=== PATIENT | male | born 1935 | race Caucasian/White ===

== ENCOUNTER → 2018-10-17 | Outpatient (CLI) | payer OTHER ==
--- NOTE | 2018-10-17 14:21 | Diagnostic Imaging Report ---
INDICATION: Cough. TECHNIQUE: PA and lateral views of the chest were obtained. COMPARISON: There is no previous study for comparison. FINDINGS: The overall heart size and pulmonary vascularity are within normal limits. There is mild air trapping. There are calcified granulomas in both lungs with pleural thickening along the right lateral chest wall where multiple old fractures are noted. Surgical changes are noted in the mediastinum. IMPRESSION: Probable background COPD without acute abnormality detected. Dictated by: Dictated on workstation # [id number]
== END ==
LOC: RAD FS 13:52
PROVIDERS: ATTEND Nurse Practitioner Family
DX: J44.1 Chronic obstructive pulmonary disease with (acute) exacerbation (principal); Z98.890 Other specified postprocedural states
CPT/HCPCS: 71046

== ENCOUNTER → 2019-06-10 | Outpatient (CLI) | payer MEDICARE, OTHER ==
--- NOTE | 2019-06-10 15:20 | Diagnostic Imaging Report ---
INDICATION: Chronic bilateral foot pain. COMPARISON: None. FINDINGS: Multiple radiographic views of the bilateral feet demonstrate no acute fracture or dislocation. There are no focal osseous lesions. There is no soft tissue swelling. Joint spaces are well maintained. No radiopaque foreign bodies are seen. IMPRESSION: No acute fractures or dislocations of the bilateral feet. Dictated by: Dictated on workstation # [id number]
== END ==
LOC: RAD FS 13:45
PROVIDERS: ATTEND Nurse Practitioner
DX: G89.29 Other chronic pain (principal); M79.671 Pain in right foot; M79.672 Pain in left foot

== ENCOUNTER 2019-09-24 13:24 | Emergency (ER) | payer MEDICARE, OTHER ==
[~2019-09-24] VITALS: Ht 177 cm; Wt 74.9 kg
--- NOTE | 2019-09-24 14:01 | ED General ---
General Chief Complaint: Cough/Cold/Flu Symptoms Stated Complaint: AMS Nursing Triage Note: PT WAS SENT FOR EVUALATION OF SINUS ISSUES AND CHRONIC WORSENING CONFUSION. Nursing Sepsis Screen: No Definite Risk Source of Information: Patient, Family (son) Exam Limitations: No Limitations History of Present Illness Date Seen by Provider: Sep 24, 2019 Time Seen by Provider: 13:45 Initial Comments The patient is an 84-year-old male presents for evaluation of sinus congestion, coughing, and generalized worsening confusion from residential. The patient's son is present and is providing most of the history. The patient's son states the patient is a history of dementia and that his confusion has been worsening over the last several weeks and actually seems a little better today. Apparently a urinalysis was done at the facility which was unremarkable. Upon arrival the patient is answering questions appropriately and appears to be in no distress. He does report some cough and congestion. He denies any pain, fevers or chills, nausea or vomiting, abdominal pain, chest pain or shortness of breath, dizziness, or syncope. He appears to be at baseline mental status per his son. Timing/Duration: 1 Day Severity: Mild Associated Systoms: Cough Allergies and Home Medications Allergies Coded Allergies: No Known Drug Allergies (Unverified , 09/24/19) Patient Home Medication List Home Medication List Reviewed: Yes Review of Systems Review of Systems Constitutional: no symptoms reported EENTM: no symptoms reported Respiratory: cough; No short of breath Cardiovascular: no symptoms reported; No chest pain Gastrointestinal: no symptoms reported Genitourinary: no symptoms reported Musculoskeletal: no symptoms reported Skin: no symptoms reported Psychiatric/Neurological: Other (confusion) Hematologic/Lymphatic: No Symptoms Reported Immunological/Allergic: no symptoms reported All Other Systems Reviewed Negative Unless Noted: Yes Past Onfimmq-Eylddy-Vljfnu Hx Past Med/Social Hx: Reviewed Nursing Past Med/Soc Hx Patient Social History Alcohol Use: Denies Use Recreational Drug Use: No Smoking Status: Never a Smoker 2nd Hand Smoke Exposure: No Recent Foreign Travel: No Contact w/Someone Who Travel: No Recent Infectious Disease Expo: No Recent Hopitalizations: No Physical Abuse: No Sexual Abuse: No Mistreated: No Fear: No Seasonal Allergies Seasonal Allergies: No Past Medical History Surgeries: No Respiratory: Yes COPD Cardiac: Yes Hypertension Neurological: No Genitourinary: No Gastrointestinal: No Endocrine: Yes Hypothyroidsim, Diabetes, Non-Insulin dep HEENT: No Cancer: No Psychosocial: No Integumentary: No Blood Disorders: No Physical Exam Vital Signs Vital Signs - First Documented 09/24/19 13:47 Temp 36.4 Pulse 90 Resp 16 Pulse Ox 97 O2 Delivery Room Air Capillary Refill : Less Than 3 Seconds Height, Weight, BMI Height: '" Weight: lbs. oz. kg; 23.00 BMI Method: General Appearance: No Apparent Distress, WD/WN HEENT: PERRL/EOMI, Normal ENT Inspection, Pharynx Normal Neck: Full Range of Motion, Normal Inspection, Non Tender, Supple Respiratory: Chest Non Tender, Lungs Clear, Normal Breath Sounds, No Accessory Muscle Use, No Respiratory Distress Cardiovascular: Regular Rate, Rhythm, No Edema, No Murmur Gastrointestinal: Normal Bowel Sounds, Non Tender, Soft Extremity: Normal Capillary Refill, Normal Inspection, Non Tender Neurologic/Psychiatric: Alert, Oriented x3, No Motor/Sensory Deficits, Normal Mood/Affect Skin: Normal Color, Warm/Dry Progress/Results/Core Measures Suspected Sepsis Recent Fever Within 48 Hours: No Infection Criteria Present: None New/Unexplained Altered Menta: No Sepsis Screen: No Definite Risk SIRS Temperature: Pulse: 90 Respiratory Rate: 16 Laboratory Tests 09/24/19 14:04: White Blood Count 7.8 Blood Pressure / Mean: Laboratory Tests 09/24/19 14:04: Creatinine 1.49H, Platelet Count 261, Total Bilirubin 0.5 Results/Orders Lab Results Laboratory Tests Test 09/24/19 14:04 Range/Units White Blood Count 7.8 4.3-11.0 10^3/uL Red Blood Count 4.33 L 4.35-5.85 10^6/uL Hemoglobin 13.8 13.3-17.7 G/DL Hematocrit 41 40-54 % Mean Corpuscular Volume 95 80-99 FL Mean Corpuscular Hemoglobin 32 25-34 PG Mean Corpuscular Hemoglobin Concent 33 32-36 G/DL Red Cell Distribution Width 12.2 10.0-14.5 % Platelet Count 261 130-400 10^3/uL Mean Platelet Volume 8.6 7.4-10.4 FL Neutrophils (%) (Auto) 76 H 42-75 % Lymphocytes (%) (Auto) 12 12-44 % Monocytes (%) (Auto) 8 0-12 % Eosinophils (%) (Auto) 3 0-10 % Basophils (%) (Auto) 1 0-10 % Neutrophils # (Auto) 6.0 1.8-7.8 X 10^3 Lymphocytes # (Auto) 1.0 1.0-4.0 X 10^3 Monocytes # (Auto) 0.6 0.0-1.0 X 10^3 Eosinophils # (Auto) 0.2 0.0-0.3 10^3/uL Basophils # (Auto) 0.1 0.0-0.1 10^3/uL Sodium Level 141 135-145 MMOL/L Potassium Level 4.1 3.6-5.0 MMOL/L Chloride Level 101 98-107 MMOL/L Carbon Dioxide Level 26 21-32 MMOL/L Anion Gap 14 5-14 MMOL/L Blood Urea Nitrogen 20 H 7-18 MG/DL Creatinine 1.49 H 0.60-1.30 MG/DL Estimat Glomerular Filtration Rate 45 BUN/Creatinine Ratio 13 Glucose Level 134 H 70-105 MG/DL Calcium Level 9.4 8.5-10.1 MG/DL Corrected Calcium 9.3 8.5-10.1 MG/DL Total Bilirubin 0.5 0.1-1.0 MG/DL Aspartate Amino Transf (AST/SGOT) 25 5-34 U/L Alanine Aminotransferase (ALT/SGPT) 20 0-55 U/L Alkaline Phosphatase 91 40-136 U/L Total Protein 6.9 6.4-8.2 GM/DL Albumin 4.1 3.2-4.5 GM/DL My Orders Orders - RONALD JUAREZ DO Comprehensive Metabolic Panel (09/24/19 13:44) Ua Culture If Indicated (09/24/19 13:44) Ed Iv/Invasive Line Start (09/24/19 13:44) Cbc With Automated Diff (09/24/19 13:44) Chest 1 View Ap/Pa Only (09/24/19 13:44) Fisher Hand Line (09/24/19 13:44) Ct Head Wo (09/24/19 14:35) Ns Iv 1000 Ml (Sodium Chloride 0.9%) (09/24/19 15:15) Vital Signs/I&O 09/24/19 13:47 Temp 36.4 Pulse 90 Resp 16 B/P (MAP) Pulse Ox 97 O2 Delivery Room Air Capillary Refill : Less Than 3 Seconds Progress Note : Progress Note @1544 - patient and son updated on lab and imaging results which are acutely unremarkable. From what the patient's son is telling me is likely the patient's symptoms are coming from primarily dementia but also with an upper respiratory infection. The patient has no complaints and is asking to be discharged home. Workup today fails reveal any emergent pathology. The patient is stable for discharge. Advised the patient and son follow-up with his primary care physician in the next 1-2 days and to return to the emergency Department immediately for new or worsening symptoms. The patient's son expresses verbal understanding and agreement with the plan. Diagnostic Imaging Diagonstic Imaging: Xray, CT Comments [facility] [employer] [place] NAME: APOLLOJESSICA Tate [employer] REC#: [id number] PT STATUS: REG ER : 1935 PHYSICIAN: RONALD JUAREZ DO ADMIT DATE: 09/24/19/ER FS Draft Date of Exam:09/24/19 CHEST 1 VIEW AP/PA ONLY HISTORY: Congestion. TECHNIQUE: Frontal view of the chest. COMPARISON: 10/17/2018 FINDINGS: Lung volumes are large. No focal consolidation is seen. There is no pleural effusion or pneumothorax. The cardiac silhouette is normal in size and contour. Sternotomy wires and post-CABG changes are seen. There are old right-sided rib fractures. IMPRESSION: 1. Large lung volumes with no acute pulmonary abnormality seen. Dictated on workstation # [id number] Dict: 09/24/19 1359 Trans: 09/24/19 1401 [facility] [id number] Interpreted by: ROSITA WILCOX MD Electronically signed by: [facility] [place] NAME: APOLLOJESSICA L [employer] REC#: [id number] PT STATUS: REG ER : 1935 PHYSICIAN: RONALD JUAREZ DO ADMIT DATE: 09/24/19/ER FS Draft Date of Exam:09/24/19 CT HEAD WO PROCEDURE: CT head without contrast. TECHNIQUE: Multiple contiguous axial images were obtained through the brain without the use of intravenous contrast. Auto Exposure Controls were utilized during the CT exam to meet ALARA standards for radiation dose reduction. All CT scans use one or more of the following dose optimizing techniques: automated exposure control, MA and/or KvP adjustment based on patient size and exam type or iterative reconstruction. INDICATION: Altered mental status. COMPARISON: No prior studies are available for comparison. FINDINGS: Ventricles and sulci are prominent consistent with cerebral atrophy. No sulcal effacement or midline shift is identified. No acute intra-axial or extra-axial hemorrhage is seen. Cisterns are patent. Visualized paranasal sinuses are clear. IMPRESSION: Cerebral atrophy and senescent changes. No acute intracranial process is detected. Dictated on workstation # [id number] Dict: 09/24/19 1501 Trans: 09/24/19 1504 [facility] [id number] Interpreted by: TWAN MURCIA MD Electronically signed by: Departure Impression Primary Impression: Upper respiratory infection Additional Impression: Dementia Disposition: 01 HOME, SELF-CARE Condition: Stable Departure-Patient Inst. Decision time for Depature: 15:45 Referrals: CHANDA CANO MD (PCP/Family) Primary Care Physician Patient Instructions: Cough, Adult (DC), Dementia (Including Alzheimer Disease) Add. Discharge Instructions: Follow-up with your primary care doctor in the next 1-2 days. Return to the emergency Department immediately for new or worsening symptoms. RONALD JUAREZ DO Sep 24, 2019 14:01
[2019-09-24 14:46] LABS: POTASSIUM 4.1 MMOL/L (3.6-5.0)
[2019-09-24 14:47] LABS: ALBUMIN 4.1 GM/DL (3.2-4.5); BILIRUBIN,TOTAL 0.5 MG/DL (0.1-1.0); CALCIUM 9.4 MG/DL (8.5-10.1); CREATININE SERUM 1.49 MG/DL (0.60-1.30); TOTAL PROTEIN 6.9 GM/DL (6.4-8.2)
[2019-09-24 14:48] LABS: BASOPHILS % (AUTO) 1 % (0-10); EOSINOPHILS % (AUTO) 3 % (0-10); HEMATOCRIT 41 % (40-54); HEMOGLOBIN 13.8 G/DL (13.3-17.7); LYMPHOCYTES % (AUTO) 12 % (12-44); MEAN CORPUSCULAR HEMOGLOBIN 32 PG (25-34); MEAN CORPUSCULAR HGB CONC 33 G/DL (32-36); MEAN CORPUSCULAR VOLUME 95 FL (80-99); MEAN PLATELET VOLUME 8.6 FL (7.4-10.4); MONOCYTES % (AUTO) 8 % (0-12); PLATELET COUNT 261 10^3/uL (130-400); RED CELL DISTRIBUTION WIDTH 12.2 % (10.0-14.5); WHITE BLOOD COUNT 7.8 10^3/uL (4.3-11.0)
[2019-09-24 14:49] LABS: BASOPHILS # (AUTO) 0.1 10^3/uL (0.0-0.1); EOSINOPHILS # (AUTO) 0.2 10^3/uL (0.0-0.3); MONOCYTES # (AUTO) 0.6 X 10^3 (0.0-1.0); NEUTROPHILS % (AUTO) 76 % (42-75)
--- NOTE | 2019-09-24 15:04 | Diagnostic Imaging Report ---
PROCEDURE: CT head without contrast. TECHNIQUE: Multiple contiguous axial images were obtained through the brain without the use of intravenous contrast. Auto Exposure Controls were utilized during the CT exam to meet ALARA standards for radiation dose reduction. All CT scans use one or more of the following dose optimizing techniques: automated exposure control, MA and/or KvP adjustment based on patient size and exam type or iterative reconstruction. INDICATION: Altered mental status. COMPARISON: No prior studies are available for comparison. FINDINGS: Ventricles and sulci are prominent consistent with cerebral atrophy. No sulcal effacement or midline shift is identified. No acute intra-axial or extra-axial hemorrhage is seen. Cisterns are patent. Visualized paranasal sinuses are clear. IMPRESSION: Cerebral atrophy and senescent changes. No acute intracranial process is detected. Dictated by: Dictated on workstation # [id number]
[2019-09-24] MEDS ORDERED: NS IV 1000 ML 500 ML IV SCH (15:15)
[2019-09-24 15:59] VITALS: BP 118/72
== END 2019-09-24 16:11 | disposition home or self-care (01) ==
LOC: EDUNIT# 13:24 → ER FS 13:26
DX: J06.9 Acute upper respiratory infection, unspecified (principal); F03.90 Unspecified dementia, unspecified severity, without behavioral disturbance, psychotic disturbance, mood disturbance, and anxiety; Z87.09 Personal history of other diseases of the respiratory system
CPT/HCPCS: 36415; 70450; 71045; 80053; 85025

== ENCOUNTER 2019-11-22 01:58 | Emergency (ER) | payer OTHER ==
[~2019-11-22] VITALS: Ht 177.8 cm; Wt 81.8 kg
--- NOTE | 2019-11-22 02:04 | ED Integumentary General ---
General Chief Complaint: Laceration Stated Complaint: FALL,LAC TO RIGHT EYEBROW, TOP OF HEAD BUMP Source: patient History of Present Illness Date Seen by Provider: Nov 22, 2019 Time Seen by Provider: 02:03 Initial Comments 84-year-old male brought in following a fall. Patient reports that he fell on a slick spot on the floor. Patient hit the floor with his head. He has an approximate 3 cm laceration to the right eyebrow and an abrasion on the top of his head with a mild hematoma. Patient denies any loss of consciousness. Patient denies any other injury. Allergies and Home Medications Allergies Coded Allergies: No Known Drug Allergies (Unverified , 09/24/19) Patient Home Medication List Home Medication List Reviewed: Yes Review of Systems Review of Systems Constitutional: No chills, No fever EENTM: see HPI Respiratory: no symptoms reported Cardiovascular: no symptoms reported Gastrointestinal: no symptoms reported Musculoskeletal: no symptoms reported Skin: see HPI Past Xncaskf-Vqcunj-Mbihxk Hx Past Med/Social Hx: Reviewed Nursing Past Med/Soc Hx Patient Social History Type Used: Cigarettes Former Smoker, Quit: Aug 21, 1979 2nd Hand Smoke Exposure: No Recent Foreign Travel: No Contact w/Someone Who Travel: No Recent Hopitalizations: No Immunizations Up To Date Date of Pneumonia Vaccine: Jun 01, 2015 Date of Influenza Vaccine: Mar 21, 2019 Seasonal Allergies Seasonal Allergies: No Past Medical History Surgeries: Yes (ROTATOR CUFF REPAIR) CABG, Orthopedic Respiratory: Yes COPD Cardiac: Yes Coronary Artery Disease, Heart Attack, High Cholesterol, Hypertension Neurological: Yes Dementia Genitourinary: Yes Prostate Problems, Renal Failure Gastrointestinal: Yes Gastroesophageal Reflux, Chronic Constipation Arthritis, Chronic Back Pain Endocrine: Yes Hypothyroidsim, Diabetes, Non-Insulin dep HEENT: No Cancer: No Psychosocial: Yes Sleep Difficulties, Anxiety, Depression Integumentary: No Blood Disorders: No Physical Exam Vital Signs Vital Signs - First Documented 11/22/19 02:11 Temp 36.5 Pulse 88 Resp 16 B/P (MAP) 157/69 (98) O2 Delivery Room Air Capillary Refill : General Appearance: WD/WN HEENT: other (abrasion scalp) Neck: non-tender, full range of motion Cardiovascular: regular rate, rhythm Respiratory: no respiratory distress, no accessory muscle use Gastrointestinal: non tender, soft Back: normal inspection Neurologic/Psychiatric: alert, normal mood/affect Skin Problem Location: scalp Skin Problem Character: other (3 cm laceration right eyebrow) Procedures/Interventions Wound Location: Face Wound's Depth, Shape: superficial, irregular Wound Explored: clean Anesthesia: 1% Lidocaine Volume Anesthetic (ccs): 5 Wound Debrided: minimal Suture: Plain Suture Size: 4-0 Number of Sutures: 6 Sterile Dressing Applied?: Yes Progress Laceration was irregular and over a hematoma. However there was good approximation. Patient tolerated well with no immediate complications Progress/Results/Core Measures Results/Orders Lab Results Laboratory Tests Test 11/22/19 02:50 Range/Units Urine Color YELLOW Urine Clarity CLEAR Urine pH 5.5 5-9 Urine Specific [place] 1.025 H 1.016-1.022 Urine Protein NEGATIVE NEGATIVE Urine Glucose (UA) NEGATIVE NEGATIVE Urine Ketones NEGATIVE NEGATIVE Urine Nitrite NEGATIVE NEGATIVE Urine Bilirubin NEGATIVE NEGATIVE Urine Urobilinogen 0.2 < = 1.0 MG/DL Urine Leukocyte Esterase NEGATIVE NEGATIVE Urine RBC (Auto) NEGATIVE NEGATIVE Urine RBC NONE /HPF Urine WBC 10-25 H /HPF Urine Squamous Epithelial Cells NONE /HPF Urine Crystals NONE /LPF Urine Bacteria FEW H /HPF Urine Casts PRESENT /LPF Urine Mucus MODERATE H /LPF Urine Other /HPF Urine Culture Indicated YES My Orders Orders - YOVANY CROWER L DO Ct Head Wo (11/22/19 02:06) Tetanus/Diphtheria Inj (Adult) (Tenivac (11/22/19 02:15) Lidocaine 1% Inj 20 Ml (Xylocaine 1% Inj (11/22/19 02:15) Ua Culture If Indicated (11/22/19 02:47) Urine Culture (11/22/19 02:50) Medications Given in ED Current Medications Medications Dose Ordered Sig/[place] Route Start Time Stop Time Status Last Admin Dose Admin Lidocaine HCl 20 ml ONCE ONCE INJ 11/22/19 02:15 11/22/19 02:16 DC 11/22/19 02:27 20 ML Tetanus/ Diphtheria Toxoids 0.5 ml ONCE ONCE IM 11/22/19 02:15 11/22/19 02:16 DC 11/22/19 02:32 0.5 ML Vital Signs/I&O 11/22/19 02:11 Temp 36.5 Pulse 88 Resp 16 B/P (MAP) 157/69 (98) O2 Delivery Room Air Progress Progress Note : Time: 02:48 Progress Note As I was suturing patient. He complained of left groin pain that radiates into his left testicle. He reports that this is been going on and off for at least a couple months. I discussed with him that we would check a urine and treat if there is a urinary tract infection. Otherwise he would need to follow-up with his primary care provider for an outpatient ultrasound that is not available in this ER at night. And is not emergent since then been going on and off for months. Diagnostic Imaging Diagonstic Imaging: CT Plain Films/CT/US/NM/MRI: head Comments No acute intracranial hemorrhage or injury. Reviewed: [facility] Imp[facility] Primary Impression: Fall from other slipping, tripping, or stumbling Additional Impressions: Laceration of forehead Qualified Codes: S01.81XA - Laceration without foreign body of other part of head, initial encounter Traumatic hematoma of forehead Qualified Codes: S00.83XA - Contusion of other part of head, initial encounter Scalp abrasion Qualified Codes: S00.01XA - Abrasion of scalp, initial encounter Urinary tract infection Qualified Codes: N39.0 - Urinary tract infection, site not specified Disposition: 01 HOME, SELF-CARE Condition: Stable Departure-Patient Inst. Referrals: SELF,CHANDA REYES (PCP/Family) Primary Care Physician Patient Instructions: Wound Care (DC), Preventing Falls in the Older Adult, Minor Head Injury (DC), Skin Abrasions, Laceration Repair With Stitches (DC), Urinary Tract Infection, Adult (DC) Add. Discharge Instructions: Follow-up and either the ER or with her primary care provider in 10 days for suture removal Follow-up with your primary care provider for further evaluation severe chronic right groin pain with possible outpatient ultrasound Emergency department focuses on treating and ruling out life-threatening diseases. Whenever possible, a diagnosis is given. However, most patients are given an impression based on their history, physical exam, and workup during your brief time in the ER. Information about probable diagnosis and other educational material has been provided. Please take the time to read and understand this information. It is very important that you follow up with a physician as discussed during the visit today. Failure to adhere to your follow-up instructions may lead to severe disability, injury, or so please make sure to keep your appointments or obtain one as requested. Please keep in mind the emergency department is not designed to your primary care or "family doctor" and nonurgent issues are best e valuated by an outpatient physician All discharge instructions reviewed with patient and/or family. Voiced understanding. Scripts Sulfamethoxazole/Trimethoprim (Bactrim Ds Tablet) 1 Each Tablet 1 EACH PO BID for 5 Days, #10 TAB Prov: SUBHA CROWE DO 11/22/19 SUBHA CROWE DO Nov 22, 2019 02:04
--- OUTSIDE RECORDS SUMMARY | 2019-11-22 02:06 | XMS REPORT | Continuity of Care Document ---
Author Organization Unknown Address Unknown Phone Unavailable Allergies Active Description Code Type Severity Reaction Onset Reported/Identified Relationship to Patient Clinical Status Yes NO KNOWN DRUG ALLERGIES UNKNOWN UNKNOWN Medications Medication Packaging Start Date St op Date Route Dosage Sig TIZANIDINE TAB 4 MG (ZANAFLEX) MG 05/30/2019 06/29/2019 PRN TID LOPERAMIDE CAP 2 MG (IMMODIUM) MG 05/30/2019 06/06/2019 PRN QID GUAIFENESIN TAB 600 MG (MUCINEX) MG 05/30/2019 06/29/2019 PRN Q12H TAMSULOSIN CAP 0.4 MG (FLOMAX) MG 05/30/2019 06/28/2019 QPM&1800 DICLOFENAC GEL GEL 1 % (VOLTAREN GEL) APPLICATION 05/30/2019 06/29/2019 BID&0800,2000 QUETIAPINE TAB 25 MG (SEROQUEL) MG 05/30/2019 06/29/2019 BID&0800,2000 TRAMADOL TAB 50 MG (ULTRAM) MG 05/30/2019 06/29/2019 TID&0800,1400,2000 CARVEDILOL TAB 3.125 MG (COREG) MG 05/30/2019 06/29/2019 BID&0800,2000 SIMVASTATIN TAB 40 MG (ZOCOR) MG 05/30/2019 06/28/2019 QPM&2000 FISH OIL CAP CAP 1000 MG (OMEGA 3) MG 05/30/2019 06/29/2019 BID&0800,2000 LACTULOSE SYRUP LIQ 20 GM/30 CC (CHRONULAC SYRUP) GM 05/30/2019 06/29/2019 BID&0800,2000 TRAMADOL TAB 50 MG (ULTRAM) MG 05/30/2019 06/09/2019 PRN BID ZOLPIDEM TAB 5 MG (AMBIEN) M G 05/30/2019 05/30/2019 PRN ONCE QUETIAPINE TAB 25 MG (SEROQUEL) MG 05/30/2019 06/01/2019 QHS&2100 TRAZODONE TAB 50 MG (DESYREL) MG 05/30/2019 06/28/2019 QHS&2100 MIRTAZAPINE TAB 15 MG (REMERON) MG 05/30/2019 06/05/2019 QHS&2100 LEVOTHYROXINE TAB 100 MCG (SYNTHROID) MCG 05/31/2019 06/29/2019 QAM&0800 LISINOPRIL TAB 10 MG (ZESTRIL) MG 05/31/2019 06/29/2019 QAM&0800 SERTRALINE TAB 50 MG (ZOLOFT) MG 05/31/2019 06/29/2019 QAM&0800 FLUTICASONE NASAL INHALER MD [place] 50 MCG (FLONASE NOSE SPRAY) PUFF(S) 05/31/2019 06/29/2019 QAM&0800 PANTOPRAZOLE TAB 40 MG (PROTONIX) MG 05/31/2019 06/29/2019 QAM&0800 CETIRIZINE TAB 10 MG (ZYRTEC) MG 05/31/2019 06/29/2019 QAM&0800 FERROUS SULFATE TAB 325 MG (FEOSOL) MG 05/31/2019 06/29/2019 QAM&0800 Aspirin ENTERIC COATED TAB 325 MG (ECOTRIN ) MG 05/31/2019 06/29/2019 QAM&0800 MultiVits (Thera M Plus) (mu aamkyl-ebtm-hlupndl) oral tablet TAB 05/31/2019 06/29/2019 QAM&0800 CYANOCOBALAMIN TAB 1000 MCG (VIT B 12) MCG 05/31/2019 06/29/2019 QAM&0800 VENLAFAXINE XR CAP 75 MG (EFFEXOR XR) MG 05/31/2019 06/29/2019 Daily&0900 RANITIDINE TAB 150 MG (ZANTAC) MG 05/31/2019 06/07/2019 PRN Daily Docusate sodium 100mg oral capsule (COLACE ) MG 05/31/2019 06/30/2019 PRN Daily BISACODYL TAB 5 MG (DULCOLAX) MG 05/31/2019 06/30/2019 PRN Daily DONEPEZIL TAB 10 MG (ARICEPT) MG 05/31/2019 06/29/2019 Daily&0900 DIPHENHYDRAMINE CAP 25 MG (BENADRYL) MG 05/31/2019 06/30/2019 PRN Daily Flu vacc [id number] 6mos up(P F)) IM syringe QUAD (Fluarix) ML 05/31/2019 05/31/2019 ONCE&1154 ALUM/MAG/SIMETH 30CC LIQ (MYLANTA PLUS) cc 05/31/2019 06/10/2019 PRN Q4H AMITRIPTYLINE TAB 25 MG (ELAVIL) MG 06/01/2019 06/30/2019 BID&0800,2000 VENLAFAXINE XR CAP 75 MG (EFFEXOR XR) MG 06/01/2019 06/30/2019 Daily&0900 TAMSULOSIN CAP 0.4 MG (FLOMAX) MG 10/15/2019 11/13/2019 QPM&1800 DICLOFENAC GEL GEL 1 % (VOLTAREN GEL) APPLICATION 10/15/2019 11/14/2019 BID&0800,2000 FAMOTIDINE TAB 20 MG (PEPCID) MG 10/15/2019 11/13/2019 BID&0800,2000 CARVEDILOL TAB 3.125 MG (COREG) MG 10/15/2019 11/14/2019 BID&0800,2000 SIMVASTATIN TAB 40 MG (ZOCOR) MG 10/15/2019 11/13/2019 QPM&2000 FISH OIL CAP CAP 1000 MG (OMEGA 3) MG 10/15/2019 11/14/2019 BID&0800,2000 FLUTICASONE/SALMETEROL MDI 2 50 /50MCG (ADVAIR DISKUS) PUFF 10/15/2019 11/13/2019 BID&0800,2000 HALOPERIDOL VIAL INJ 5 MG/CC (HALDOL 1CC V IAL) MG 10/15/2019 10/17/2019 PRN Q6H OLANZAPINE TAB 10 MG (ZYPREXA) MG 10/15/2019 11/13/2019 QHS&2100 Clonazepam Oral Dissolve Tab 0.25mg (Klono pin) MG 10/15/2019 10/15/2019 ONCE&2100 MIRTAZAPINE TAB 15 MG (REMERON) MG 10/15/2019 11/13/2019 QHS&2100 IBUPROFEN TAB 400 MG (MOTRIN) MG 10/15/2019 11/14/2019 QID&0800,1200,1700,2200 Ziprasidone IM recon soln 20mg/mL vial (Ge odon) MG 10/15/2019 10/15/2019 ONCE&2314 ACETAMINOPHEN ORAL TABLET 325mg(Tylenol) MG 10/16/2019 11/15/2019 PRN EVERY 6 Hour ALUM/MAG/SIMETH 30CC LIQ (MYLANTA PLUS) cc 10/16/2019 10/25/2019 PRN Q4H POLYETHYLENE GLYCOL POWDER U D PWD (MIRALAX 17GM UNIT DOSE PAKS) gm 10/16/2019 11/15/2019 PRN Q3H GUAIFENESIN TAB 600 MG (MUCINEX) MG 10/16/2019 11/15/2019 PRN Q12H LEVOTHYROXINE TAB 100 MCG (SYNTHROID) MCG 10/16/2019 11/14/2019 Daily&0700 ALPRAZOLAM TAB 0.5 MG (XANAX) MG 10/16/2019 11/14/2019 BID&0800,1999 CALMOSEPTINE OINT TUBE (RISAMINE OINT) [place] 10/16/2019 11/15/2019 PRN QID AMITRIPTYLINE TAB 25 MG (ELAVIL) MG 10/16/2019 11/14/2019 BID&0800,1999 LOPERAMIDE CAP 2 MG (IMMODIUM) MG 10/16/2019 11/15/2019 PRN QID Memantine oral tablet 10mg (NAMENDA) MG 10/16/2019 11/14/2019 BID&0800,1999 ALPRAZOLAM TAB 0.25 MG (XANAX) MG 10/16/2019 11/15/2019 PRN BID LACTULOSE SYRUP LIQ 20 GM/30 CC (CHRONULAC SYRUP) GM 10/16/2019 11/15/2019 PRN BID VENLAFAXINE XR CAP 75 MG (EFFEXOR XR) MG 10/16/2019 11/14/2019 Daily&0900 BISACODYL TAB 5 MG (DULCOLAX) MG 10/16/2019 11/15/2019 PRN Daily OLANZAPINE TAB 5 MG (ZYPREXA) MG 10/16/2019 11/14/2019 Daily&0900 CETIRIZINE TAB 10 MG (ZYRTEC) MG 10/16/2019 11/15/2019 PRN Daily Aspirin ENTERIC COATED TAB 325 MG (ECOTRIN ) MG 10/16/2019 11/14/2019 Daily&0900 SENNA CONC/DOCUSATE TAB (SENOKOT S) TAB 10/16/2019 11/15/2019 PRN Daily MultiVits (Thera M Plus) (mu psvvxk-rhrt-qqwkfpl) oral tablet TAB 10/16/2019 11/14/2019 Daily&0900 BISACODYL SUPPOS 10 MG (DULCOLAX SUPPOS) MG 10/16/2019 11/15/2019 PRN Daily CYANOCOBALAMIN TAB 1000 MCG (VIT B 12) MCG 10/16/2019 11/14/2019 Daily&0900 ALBUTEROL INHALER MDI 8 GM (VENTOLIN HFA) PUFF(S) 10/16/2019 11/15/2019 PRN Daily MILK OF MAGNESIA LIQ ml 10/16/2019 11/15/2019 PRN Daily HYDROXYZINE TAB 10 MG (ATARAX) MG 10/16/2019 11/14/2019 Daily&0900 ZIPRASIDONE CAP 40 MG (GEODON) MG 10/17/2019 10/17/2019 ONCE&0838 ZIPRASIDONE CAP 40 MG (GEODON) MG 10/17/2019 11/16/2019 BID&0700,1730 Ziprasidone IM recon soln 20mg/mL vial (Ge odon) MG 10/17/2019 11/16/2019 PRN BID MUPIROCIN OINT 2 % (BACTROBAN) [place] 10/19/2019 10/29/2019 BID&0800,2000 Mirtazapine oral tablet 7.5mg (Remeron) MG 10/19/2019 11/17/2019 QHS&2100 HALOPERIDOL VIAL INJ 5 MG/CC (HALDOL 1CC V IAL) MG 10/19/2019 10/19/2019 PRN ONCE HALOPERIDOL VIAL INJ 5 MG/CC (HALDOL 1CC V IAL) MG 10/20/2019 10/27/2019 PRN Q8H CLONAZEPAM TAB 0.5 MG (KLONOPIN) MG 10/20/2019 11/18/2019 Daily&1700 MIRTAZAPINE TAB 15 MG (REMERON) MG 10/21/2019 11/19/2019 QHS&2100 MELATONIN TAB 3 MG (MELATONIN) MG 10/21/2019 11/19/2019 QHS&2100 Clonazepam Oral Dissolve Tab 0.25mg (Klono pin) MG 10/22/2019 10/22/2019 ONCE&1620 VENLAFAXINE XR CAP 37.5 MG (EFFEXOR XR) MG 10/23/2019 10/23/2019 ONCE&1153 Clonazepam Oral Dissolve Tab 0.25mg (Klono pin) MG 10/23/2019 11/21/2019 Daily&1300 HALOPERIDOL TAB 5 MG (HALDOL) MG 10/23/2019 10/23/2019 ONCE&1922 VENLAFAXINE XR CAP 37.5 MG (EFFEXOR XR) MG 10/24/2019 11/22/2019 QAM&0800 CLONAZEPAM TAB 1 MG (KLONOPIN) MG 10/24/2019 10/24/2019 ONCE&1200 CLONAZEPAM TAB 0.5 MG (KLONOPIN) MG 10/24/2019 10/24/2019 ONCE&1200 CLONAZEPAM TAB 0.5 MG (KLONOPIN) MG 10/25/2019 10/25/2019 ONCE&1032 HALOPERIDOL TAB 5 MG (HALDOL) MG 10/25/2019 11/24/2019 PRN Q8H LORAZEPAM TAB 2 MG (ATIVAN) MG 10/25/2019 10/25/2019 PRN ONCE LORAZEPAM 1CC VIAL INJ 2 MG/CC (ATIVAN VIA L) MG 10/25/2019 10/25/2019 PRN ONCE DIPHENHYDRAMINE VIAL INJ 50 MG/CC (BENADRYL VIAL) MG 10/25/2019 10/30/2019 PRN Q4H Ziprasidone IM recon soln 20mg/mL vial (Ge odon) MG 10/25/2019 10/25/2019 ONCE&1824 CLONAZEPAM TAB 0.5 MG (KLONOPIN) MG 10/25/2019 11/24/2019 BID&0800,2000 Lidocaine adhesive patch 5% (Lidoderm) 10/26/2019 10/26/2019 ONCE&0908 HALOPERIDOL VIAL INJ 5 MG/CC (HALDOL 1CC V IAL) MG 10/26/2019 11/02/2019 PRN Q6H ZIPRASIDONE CAP 40 MG (GEODON) MG 10/26/2019 11/24/2019 Daily&1200 ZIPRASIDONE CAP 20 MG (GEODON) MG 10/26/2019 11/24/2019 Daily&1200 ZIPRASIDONE CAP 40 MG (GEODON) MG 10/26/2019 11/24/2019 Daily&1700 ZIPRASIDONE CAP 20 MG (GEODON) MG 10/26/2019 11/24/2019 Daily&1700 Lidocaine adhesive patch 5% (Lidoderm) 10/27/2019 11/05/2019 Daily&0900 Problems Date Dx Coded Attending Type Code Diagnosis Diagnosed By 05/30/2019 MIGNON LEVIN 296 .20 MAJOR DEPRESSIVE DISORDER, SINGLE EPISODE, UNSPECIFIED DEGREE 05/30/2019 MIGNON LEVIN F32 .9 MAJOR DEPRESSIVE DISORDER, SINGLE EPISODE, UNSPECIFIED 05/30/2019 MIGNON LEVIN 296 .20 MAJOR DEPRESSIVE DISORDER, SINGLE EPISODE, UNSPECIFIED DEGREE 05/30/2019 MIGNON LEVIN F32 .9 MAJOR DEPRESSIVE DISORDER, SINGLE EPISODE, UNSPECIFIED 05/30/2019 MIGNON LEVIN 296 .20 MAJOR DEPRESSIVE DISORDER, SINGLE EPISODE, UNSPECIFIED DEGREE 05/30/2019 MIGNON LEVIN F32 .9 MAJOR DEPRESSIVE DISORDER, SINGLE EPISODE, UNSPECIFIED 05/30/2019 MIGNON LEVIN 296 .20 MAJOR DEPRESSIVE DISORDER, SINGLE EPISODE, UNSPECIFIED DEGREE 05/30/2019 MIGNON LEVIN F32 .9 MAJOR DEPRESSIVE DISORDER, SINGLE EPISODE, UNSPECIFIED 06/01/2019 MIGNON LEVIN 296 .20 MAJOR DEPRESSIVE DISORDER, SINGLE EPISODE, UNSPECIFIED DEGREE 06/01/2019 MIGNON LEVIN F32 .9 MAJOR DEPRESSIVE DISORDER, SINGLE EPISODE, UNSPECIFIED Procedures There is no data. Results Test Result Range Thyroid Stimulating Hormone - 05/30/19 1 3:32 TSH 1.28 mIU/mL 0.32-5.00 Urinalysis - 05/30/19 13:32 Icotest N/A Negative Urine Volume Urine Volume Sufficient (10mL) Urine-Appearance Clear Clear Urine-Bacteria Negative Urine-Bilirubin Negative Negative Urine-Blood Negative Negative Urine-Color Yellow Colorless-[place] ow Urine-Epithelial Cells 0-5/HPF Urine-Glucose Negative Negative Urine-Ketones Negative Negative Urine-Leukocytes Negative Negative Urine-Nitrite Negative Negative Urine-Other Moderate numbers of sperm se en. Urine Saved if Culture Needed (48hrs from time of collection) Urine-pH 5.5 5-8.5 Urine-Protein Negative Negative Urine-RBC Negative Urine-Specific [place] 1.025 1.000-1 .030 Urine-WBC Negative Urobilinogen 0.2 E.U./dL 0.2-1.0 Rapid Drug Screen + ETOH,Medical - 05/30 13:32 Amphetamine NEGATIVE NEGATIVE Barbiturates NEGATIVE NEGATIVE Benzodiazepines NEGATIVE NEGATIVE Cocaine NEGATIVE NEGATIVE Ethanol, Urine <10.00 mg/dL 20.00-80.00 Marijuana NEGATIVE NEGATIVE Methylenedioxymethamphetamine NEGATIVE NEGATIVE Opiates NEGATIVE NEGATIVE Oxycodone NEGATIVE NEGATIVE Phencyclidine NEGATIVE NEGATIVE Propoxyphene NEGATIVE NEGATIVE Tricyclic Antidepressant NEGATIVE NEGAT LEO MRSA Screen - 05/30/19 14:00 FINAL CULTURE RESULTS MRSA Negative Nasal Culture MEDIA PLATED Setup at 14:15 on 05/30/2019 Lipid Panel - 05/31/19 05:19 C/HDL 4.7 3.7-6.7 Cholesterol 156 mg/dL 100-240 HDL 33 mg/dL 30-85 LDL-Calculated 96 mg/dL 0-100 Trig 133 mg/dL 35-160 VLDL 27 mg/dL 0-42 EKG - 10/15/19 19:15 EKG Complete Thyroid Stimulating Hormone - 10/15/19 1 9:15 TSH 1.14 mIU/mL 0.32-5.00 MRSA Screen - 10/15/19 19:20 FINAL CULTURE RESULTS MRSA POSITIVE Nasal Culture MEDIA PLATED Setup at 19:46 on 10/15/2019 Lipid Panel - 10/16/19 05:20 C/HDL 3.4 3.7-6.7 Cholesterol 149 mg/dL 100-240 HDL 44 mg/dL 30-85 LDL-Calculated 75 mg/dL 0-100 Trig 151 mg/dL 35-160 VLDL 30 mg/dL 0-42 Rapid Drug Screen + ETOH,Medical - 10/16 11:55 Amphetamine NEGATIVE NEGATIVE Barbiturates NEGATIVE NEGATIVE Benzodiazepines POSITIVE NEGATIVE Cocaine NEGATIVE NEGATIVE Ethanol, Urine <10.00 mg/dL 20.00-80.00 Marijuana NEGATIVE NEGATIVE Methylenedioxymethamphetamine NEGATIVE NEGATIVE Opiates NEGATIVE NEGATIVE Oxycodone NEGATIVE NEGATIVE Phencyclidine POSITIVE NEGATIVE Propoxyphene NEGATIVE NEGATIVE Tricyclic Antidepressant POSITIVE NEGAT LEO EKG - 10/20/19 06:05 EKG Complete Comprehensive Metabolic Panel - 10/22/19 05:52 Albumin 3.7 g/dL 3.6-5.1 ALP 85 U/L 35-130 ALT 22 U/L 6-45 Anion Gap 13 6-14 AST 24 U/L 2-40 BUN 15 mg/dL 5-25 Calcium 8.9 mg/dL 8.3-10.4 Chloride 107 mmol/L 95-114 CO2 27 mEq/L 22-33 Creat 1.14 mg/dL 0.50-1.50 eGFR 61 mL/min/1.73m2 >59 Globulin 2.1 g/dL 2.3-3.5 Glucose 104 mg/dL 70-110 Osmo 296 280-295 Potassium 4.3 mmol/L 3.5-5.3 Sodium 143 mmol/L 134-148 TBil 0.8 mg/dL 0.2-1.2 TP 5.8 g/dL 6.0-8.3 EKG - 10/25/19 04:21 EKG Complete Comprehensive Metabolic Panel - 10/28/19 05:55 Albumin 3.4 g/dL 3.6-5.1 ALP 70 U/L 35-130 ALT 18 U/L 6-45 Anion Gap 13 6-14 AST 22 U/L 2-40 BUN 17 mg/dL 5-25 Calcium 8.4 mg/dL 8.3-10.4 Chloride 110 mmol/L 95-114 CO2 24 mEq/L 22-33 Creat 1.31 mg/dL 0.50-1.50 eGFR 52 mL/min/1.73m2 >59 Globulin 1.8 g/dL 2.3-3.5 Glucose 103 mg/dL 70-110 Osmo 297 280-295 Potassium 4.1 mmol/L 3.5-5.3 Sodium 143 mmol/L 134-148 TBil 0.4 mg/dL 0.2-1.2 TP 5.2 g/dL 6.0-8.3 Encounters ACCT No. Visit Date/Time Discharge Status Pt. Type Provider Facility Loc./Unit Complaint [id number] 10/15/2019 18:41:00 10/30/2019 10:10 :00 DIS Inpatient MIGNON LEVIN [facility] [id number] 05/30/2019 13:29:00 06/01/2019 13:48: 00 DIS Inpatient MIGNON LEVIN [facility] [id number] 05/30/2019 15:00:00 05/30/2019 15:00: 00 CAN Inpatient MIGNON LEVIN [id number] 05/30/2019 13:50:24 Document Registration [id number] 05/30/2019 14:57:00 Document Registration
[2019-11-22] MEDS ORDERED: LIDOCAINE 1% INJ 20 ML 20 ML VIAL INJ ONE (02:15)
[2019-11-22] MEDS ORDERED: TETANUS & DIPHTHERIA TOX,ADULT 0.5 ML (TENIVAC) IM ONE (02:15)
[2019-11-22 03:05] LABS: BACTERIA,URINE FEW /HPF; BILIRUBIN,URINE NEGATIVE (NEGATIVE); CLARITY,URINE CLEAR; COLOR,URINE YELLOW; GLUCOSE, URINE (UA) NEGATIVE (NEGATIVE); KETONES,URINE NEGATIVE (NEGATIVE); LEUKOCYTE ESTERASE ,URINE NEGATIVE (NEGATIVE); NITRITE,URINE NEGATIVE (NEGATIVE); PH,URINE 5.5 (5-9); PROTEIN,URINE NEGATIVE (NEGATIVE)
[2019-11-22] MEDS ORDERED: SULF1TAB35 PO (03:14)
[2019-11-22 03:15] VITALS: BP 150/64
--- NOTE | 2019-11-22 06:09 | Diagnostic Imaging Report ---
INDICATION: Fall with trauma to the head and face TECHNIQUE: Routine non contrast-enhanced axial images were obtained from the skull base to the vertex. Auto Exposure Controls were utilized during the CT exam to meet ALARA standards for radiation dose reduction COMPARISON: 09/24/2019 FINDINGS: The ventricles and cortical sulci are diffusely prominent, compatible with age-related volume loss. There are confluent areas of abnormal, low attenuation in the periventricular white matter. This is consistent with chronic small vessel ischemic changes. There is no midline shift or mass-effect. No acute intra-axial hemorrhage is seen. There are no abnormal areas of increased or decreased density to suggest acute hemorrhage or edema. No extra-axial masses or collections are present. Right supraorbital soft tissue hematoma is noted. The underlying bony calvarium is intact. The visualized paranasal sinuses are unremarkable. The mastoid air cells are clear. IMPRESSION: 1. No acute intracranial abnormality. No CT evidence of mass, acute infarct or intracranial hemorrhage. 2. Chronic small vessel ischemic changes in deep white matter. Dictated by: Dictated on workstation # [id number]
== END 2019-11-22 03:17 | disposition home or self-care (01) ==
LOC: EDUNIT# 01:58 → ER FS 02:01
DX: S01.81XA Laceration without foreign body of other part of head, initial encounter (principal); S00.83XA Contusion of other part of head, initial encounter; N39.0 Urinary tract infection, site not specified; J44.9 Chronic obstructive pulmonary disease, unspecified; I25.10 Atherosclerotic heart disease of native coronary artery without angina pectoris; I25.2 Old myocardial infarction; E78.00 Pure hypercholesterolemia, unspecified; I10 Essential (primary) hypertension; K21.9 Gastro-esophageal reflux disease without esophagitis; K59.09 Other constipation; E03.9 Hypothyroidism, unspecified; E11.9 Type 2 diabetes mellitus without complications; F41.9 Anxiety disorder, unspecified; F32.9 Major depressive disorder, single episode, unspecified; W19.XXXA Unspecified fall, initial encounter; Z87.891 Personal history of nicotine dependence; Z23 Encounter for immunization
CPT/HCPCS: 70450; 81000; 87088; 90714

== ENCOUNTER 2020-07-08 13:25 | Emergency (ER) | payer OTHER ==
[~2020-07-08] VITALS: Ht 175 cm; Wt 76.0 kg
[~2020-07-08 13:25] MED LIST: SULF1TAB35 PO
[2020-07-08 13:43] VITALS: BP 154/73
--- NOTE | 2020-07-08 13:52 | ED GU-Female ---
General Chief Complaint: - Urinary Stated Complaint: NOT URINATING Nursing Triage Note: PT REPORTS "CANT PEE" Nursing Sepsis Screen: No Definite Risk Source: patient Exam Limitations: no limitations History of Present Illness Date Seen by Provider: Jul 08, 2020 Time Seen by Provider: 01:35 Initial Comments 85-year-old male presents with inability urinate. States symptoms began today and he hasn't urinated at all today, but was going fine yesterday without any difficulty. Denies any recent illness, fever or chills or abdominal pain. Den ies any pain with urination, dysuria or frequency preceding. Does have a history of prostate problems and takes medication daily. Allergies and Home Medications Allergies Coded Allergies: No Known Drug Allergies (Unverified , 09/24/19) Home Medications Sulfamethoxazole/Trimethoprim 1 Each Tablet, 1 EACH PO BID Prescribed by: SUBHA CROWE on 11/22/19 0314 Patient Home Medication List Home Medication List Reviewed: Yes Review of Systems Review of Systems Constitutional: see HPI; No chills, No dizziness, No fever, No malaise, No weakness Respiratory: no symptoms reported Cardiovascular: no symptoms reported Gastrointestinal: abdominal pain; No constipation, No nausea, No vomiting Genitourinary: see HPI; denies burning, denies discharge, denies dysuria, denies frequency, denies flank pain, denies hematuria; pain; denies urgency Musculoskeletal: No back pain, No joint pain Past Wpjonfy-Twdsis-Gskcra Hx Past Med/Social Hx: Reviewed Nursing Past Med/Soc Hx Patient Social History Alcohol Use: Denies Use Recreational Drug Use: No Type Used: Cigarettes Former Smoker, Quit: Aug 21, 1979 2nd Hand Smoke Exposure: No Recent Foreign Travel: No Contact w/Someone Who Travel: No Recent Infectious Disease Expo: No Recent Hopitalizations: No Physical Abuse: No Sexual Abuse: No Mistreated: No Fear: No Immunizations Up To Date Date of Pneumonia Vaccine: Jun 01, 2015 Date of Influenza Vaccine: Mar 21, 2019 Seasonal Allergies Seasonal Allergies: No Past Medical History Surgeries: Yes (ROTATOR CUFF REPAIR) CABG, Orthopedic Respiratory: Yes COPD Cardiac: Yes Coronary Artery Disease, Heart Attack, High Cholesterol, Hypertension Neurological: Yes Dementia Genitourinary: Yes Prostate Problems, Renal Failure Gastrointestinal: Yes Gastroesophageal Reflux, Chronic Constipation Arthritis, Chronic Back Pain Endocrine: Yes Hypothyroidsim, Diabetes, Non-Insulin dep HEENT: No Cancer: No Psychosocial: Yes Sleep Difficulties, Anxiety, Depression Integumentary: No Blood Disorders: No Physical Exam Vital Signs Vital Signs - First Documented 07/08/20 13:43 Temp 36.3 Pulse 70 Resp 18 B/P (MAP) 154/73 (100) Pulse Ox 98 O2 Delivery Room Air Capillary Refill : Less Than 3 Seconds Height, Weight, BMI Height: '" Weight: lbs. oz. kg; 24.00 BMI Method: General Appearance: WD/WN, no apparent distress Cardiovascular: regular rate, rhythm, no edema Respiratory: chest non-tender, lungs clear Gastrointestinal: soft, no pulsatile mass; No guarding, No rebound; other (suprapubic discomfort. no CVA TTP) Procedures/Interventions Suture Size: 4-0 Progress/Results/Core Measures Suspected Sepsis Recent Fever Within 48 Hours: No Infection Criteria Present: None New/Unexplained Altered Menta: No Sepsis Screen: No Definite Risk SIRS Temperature: Pulse: 70 Respiratory Rate: 18 Blood Pressure 154 /73 Mean: 100 Results/Orders Lab Results Laboratory Tests Test 07/08/20 13:40 Range/Units Urine Color YELLOW Urine Clarity CLEAR Urine pH 6.0 5-9 Urine Specific [place] 1.010 L 1.016-1.022 Urine Protein NEGATIVE NEGATIVE Urine Glucose (UA) NEGATIVE NEGATIVE Urine Ketones NEGATIVE NEGATIVE Urine Nitrite NEGATIVE NEGATIVE Urine Bilirubin NEGATIVE NEGATIVE Urine Urobilinogen 0.2 < = 1.0 MG/DL Urine Leukocyte Esterase NEGATIVE NEGATIVE Urine RBC (Auto) NEGATIVE NEGATIVE Urine RBC NONE /HPF Urine WBC 0-2 /HPF Urine Squamous Epithelial Cells NONE /HPF Urine Crystals NONE /LPF Urine Bacteria NEGATIVE /HPF Urine Casts NONE /LPF Urine Mucus NEGATIVE /LPF Urine Culture Indicated NO My Orders Orders - CARRIE GROSSMAN DO Urinalysis (07/08/20 13:48) Vital Signs/I&O 07/08/20 13:43 Temp 36.3 Pulse 70 Resp 18 B/P (MAP) 154/73 (100) Pulse Ox 98 O2 Delivery Room Air Capillary Refill : Less Than 3 Seconds Blood Pressure Mean: 100 Progress Note : Progress Note Called Dr Cage @ 3681 to discuss patients sudden bladder outlet obstruction and 1200 residual. Cath left in place, no UTI, maxed out on meds. Not having any problems w constipation. Appt scheduled for 07/14 @ 1330 Departure Impression Primary Impression: Bladder outlet obstruction Disposition: 01 HOME, SELF-CARE Condition: Improved Departure-Patient Inst. Decision time for Depature: 13:52 Referrals: CHANDA CANO MD (PCP/Family) Primary Care Physician ORTEGA DAVIS MD Patient Instructions: Urinary Obstruction (DC) Add. Discharge Instructions: An appointment has been scheduled for you with Dr Cage on MondayJul 14 @ 1:30pm in [place] All discharge instructions reviewed with patient and/or family. Voiced understanding. CARRIE GROSSMAN DO Jul 08, 2020 13:52
[2020-07-08 13:59] LABS: CLARITY,URINE CLEAR; COLOR,URINE YELLOW; GLUCOSE, URINE (UA) NEGATIVE (NEGATIVE); PROTEIN,URINE NEGATIVE (NEGATIVE)
[2020-07-08 14:00] LABS: BACTERIA,URINE NEGATIVE /HPF; BILIRUBIN,URINE NEGATIVE (NEGATIVE); KETONES,URINE NEGATIVE (NEGATIVE); LEUKOCYTE ESTERASE ,URINE NEGATIVE (NEGATIVE); NITRITE,URINE NEGATIVE (NEGATIVE); WBC,URINE 0-2 /HPF
== END 2020-07-08 14:29 | disposition home or self-care (01) ==
LOC: EDUNIT# 13:25 → ER FS 13:26
DX: N32.0 Bladder-neck obstruction (principal); Z87.891 Personal history of nicotine dependence
CPT/HCPCS: 51702; 81000

== ENCOUNTER 2020-07-18 18:12 | Emergency (ER) | payer OTHER ==
[~2020-07-18] VITALS: Ht 177.8 cm; Wt 69.6 kg
--- NOTE | 2020-07-18 18:35 | ED General ---
General Chief Complaint: General Problems/Pain Stated Complaint: WEAKNESS Nursing Triage Note: Patient's son reports patient is a resident of [facility]. States he was called by staff today to report that patient was weaker than normal and did not want to get out of bed. Son states they took patient to urgent care and had a urine sample tested. Urgent care reports urine sample was normal, patient has an indwelling catheter (blue). Son states patient seems to be acting normally, walking with a walker, eating and drinking normally, normal bowel movements, normal mentation (patient has Alzheimer's dementia). Patient states he has some chronic back pain, but nothing out of the ordinary. Patient states his weakness has improved. Nursing Sepsis Screen: No Definite Risk History of Present Illness Date Seen by Provider: Jul 18, 2020 Time Seen by Provider: 18:30 Initial Comments 85-year-old male presents with his son from his group home facility. Noted by staff today to be weaker than normal and not wanting to get out of bed. His son took him to the urgent care this evening, they did a urine test off of his catheter and told was normal and they advised them to come to the ER. On arrival he admits that he did have an episode weakness without any associated symptoms. Feeling better now. Denies chest pain, palpitations, shortness of air or cough. Denies any recent illness. Denies abdominal pain, nausea vomiting or diarrhea. Allergies and Home Medications Allergies Coded Allergies: No Known Drug Allergies (Unverified , 09/24/19) Home Medications Sulfamethoxazole/Trimethoprim 1 Each Tablet, 1 EACH PO BID Prescribed by: SUBHA CROWE on 11/22/19 8842 Patient Home Medication List Home Medication List Reviewed: Yes Review of Systems Review of Systems Constitutional: No chills, No diaphoresis, No dizziness, No fever, No malaise; weakness EENTM: no symptoms reported Respiratory: no symptoms reported; No cough, No short of breath Cardiovascular: No chest pain, No edema, No palpitations, No syncope Gastrointestinal: No abdominal pain, No diarrhea, No loss of appetite, No nausea, No vomiting Skin: No change in color, No rash Psychiatric/Neurological: Denies Headache, Denies Numbness, Denies Paresthesia; Weakness Past Myjzpuv-Urcxhs-Ouoivr Hx Past Med/Social Hx: Reviewed Nursing Past Med/Soc Hx Patient Social History Type Used: Cigarettes Former Smoker, Quit: Aug 21, 1979 2nd Hand Smoke Exposure: No Recent Foreign Travel: No Contact w/Someone Who Travel: No Recent Infectious Disease Expo: No Recent Hopitalizations: No Immunizations Up To Date Date of Pneumonia Vaccine: Jun 01, 2015 Date of Influenza Vaccine: Mar 21, 2019 Seasonal Allergies Seasonal Allergies: No Past Medical History Surgeries: Yes (ROTATOR CUFF REPAIR) CABG, Orthopedic Respiratory: Yes COPD Cardiac: Yes Coronary Artery Disease, Heart Attack, High Cholesterol, Hypertension Neurological: Yes Dementia Genitourinary: Yes Prostate Problems, Renal Failure Gastrointestinal: Yes Gastroesophageal Reflux, Chronic Constipation Arthritis, Chronic Back Pain Endocrine: Yes Hypothyroidsim, Diabetes, Non-Insulin dep HEENT: No Cancer: No Psychosocial: Yes Sleep Difficulties, Anxiety, Depression Integumentary: No Blood Disorders: No Physical Exam Vital Signs Vital Signs - First Documented 07/18/20 18:15 Temp 36.8 Pulse 86 Resp 16 B/P (MAP) 178/74 (108) Pulse Ox 97 O2 Delivery Room Air Capillary Refill : Less Than 3 Seconds Height, Weight, BMI Height: '" Weight: lbs. oz. kg; 22.00 BMI Method: General Appearance: No Apparent Distress, WD/WN Eyes: Bilateral Eye Normal Inspection, Bilateral Eye PERRL, Bilateral Eye EOMI HEENT: PERRL/EOMI, Normal ENT Inspection Neck: Normal Inspection, Non Tender, Supple Respiratory: Chest Non Tender, Lungs Clear, Normal Breath Sounds, No Accessory Muscle Use, No Respiratory Distress Cardiovascular: Regular Rate, Rhythm, No Edema, No Gallop, No JVD Gastrointestinal: Non Tender, Soft Back: Normal Inspection, No CVA Tenderness Extremity: Normal Capillary Refill, Normal Inspection, Non Tender, No Calf Tenderness Neurologic/Psychiatric: Alert, No Motor/Sensory Deficits, Normal Mood/Affect, loan approver II-XII Norm as Tested Skin: Normal Color, Warm/Dry Procedures/Interventions Suture Size: 4-0 Progress/Results/Core Measures Suspected Sepsis Recent Fever Within 48 Hours: No Infection Criteria Present: None New/Unexplained Altered Menta: No Sepsis Screen: No Definite Risk SIRS Temperature: Pulse: 86 Respiratory Rate: 16 Laboratory Tests 07/18/20 18:43: White Blood Count 8.7 Blood Pressure 178 /74 Mean: 108 Laboratory Tests 07/18/20 18:43: Creatinine 1.38H, Platelet Count 222, Total Bilirubin 0.3 Results/Orders Lab Results Laboratory Tests Test 07/18/20 18:43 Range/Units White Blood Count 8.7 4.3-11.0 10^3/uL Red Blood Count 4.32 L 4.35-5.85 10^6/uL Hemoglobin 13.9 13.3-17.7 G/DL Hematocrit 41 40-54 % Mean Corpuscular Volume 94 80-99 FL Mean Corpuscular Hemoglobin 32 25-34 PG Mean Corpuscular Hemoglobin Concent 34 32-36 G/DL Red Cell Distribution Width 11.6 10.0-14.5 % Platelet Count 222 130-400 10^3/uL Mean Platelet Volume 9.3 7.4-10.4 FL Immature Granulocyte % (Auto) 0 % Neutrophils (%) (Auto) 71 42-75 % Lymphocytes (%) (Auto) 17 12-44 % Monocytes (%) (Auto) 8 0-12 % Eosinophils (%) (Auto) 4 0-10 % Basophils (%) (Auto) 1 0-10 % Neutrophils # (Auto) 6.1 1.8-7.8 X 10^3 Lymphocytes # (Auto) 1.5 1.0-4.0 X 10^3 Monocytes # (Auto) 0.7 0.0-1.0 X 10^3 Eosinophils # (Auto) 0.3 0.0-0.3 10^3/uL Basophils # (Auto) 0.1 0.0-0.1 10^3/uL Immature Granulocyte # (Auto) 0.0 0.0-0.1 10^3/uL Sodium Level 143 135-145 MMOL/L Potassium Level 4.2 3.6-5.0 MMOL/L Chloride Level 107 98-107 MMOL/L Carbon Dioxide Level 22 21-32 MMOL/L Anion Gap 14 5-14 MMOL/L Blood Urea Nitrogen 36 H 7-18 MG/DL Creatinine 1.38 H 0.60-1.30 MG/DL Estimat Glomerular Filtration Rate 49 BUN/Creatinine Ratio 26 Glucose Level 99 70-105 MG/DL Calcium Level 9.3 8.5-10.1 MG/DL Corrected Calcium 8.9 8.5-10.1 MG/DL Total Bilirubin 0.3 0.1-1.0 MG/DL Aspartate Amino Transf (AST/SGOT) 17 5-34 U/L Alanine Aminotransferase (ALT/SGPT) 13 0-55 U/L Alkaline Phosphatase 82 40-136 U/L Troponin I < 0.30 <0.30 NG/ML Total Protein 6.7 6.4-8.2 GM/DL Albumin 4.5 3.2-4.5 GM/DL My Orders Orders - CARRIE GROSSMAN DO Ed Iv/Invasive Line Start (07/18/20 18:35) Comprehensive Metabolic Panel (07/18/20 18:35) Cbc With Automated Diff (07/18/20 18:35) Troponin I Fs (07/18/20 18:35) Ekg Tracing (07/18/20 18:35) Chest 1 View Ap/Pa Only (07/18/20 18:35) Vital Signs/I&O 07/18/20 18:15 Temp 36.8 Pulse 86 Resp 16 B/P (MAP) 178/74 (108) Pulse Ox 97 O2 Delivery Room Air Capillary Refill : Less Than 3 Seconds Blood Pressure Mean: 108 ECG Initial ECG Impression Date: Jul 18, 2020 Initial ECG Impression Time: 18:52 Initial ECG Rate: 84 Initial ECG Rhythm: Normal Sinus Initial ECG Intervals: Normal Initial ECG Impression: Normal Diagnostic Imaging Comments EXAMINATION: Chest, 1 view. HISTORY: Weakness. COMPARISON: Chest radiograph 09/24/2019. FINDINGS: Heart size and pulmonary vasculature are normal. Surgical changes from CABG. The lungs are clear without consolidation, pleural effusion or pneumothorax. The osseous structures are intact. IMPRESSION: No acute radiographic abnormality in the chest. Dictated by: Dictated on workstation # [id number] Dict: 07/18/201855 Trans: 07/18/201857 [facility] [id number] Interpreted by: RONALD KULKARNI DO Electronically signed by: RONALD KULKARNI DO 07/18/201857 Departure Impression Primary Impression: Weakness Disposition: 01 HOME, SELF-CARE Condition: Stable Departure-Patient Inst. Referrals: CHANDA HOFFMAN MD (PCP/Family) Primary Care Physician Patient Instructions: Generalized Weakness (DC) Add. Discharge Instructions: See Dr Hoffman in 1 week for follow up evaluation, ER sooner if worse. All discharge instructions reviewed with patient and/or family. Voiced understanding. CARRIE GROSSMAN DO Jul 18, 2020 18:34
[2020-07-18 18:49] LABS: BASOPHILS % (AUTO) 1 % (0-10); EOSINOPHILS % (AUTO) 4 % (0-10); HEMATOCRIT 41 % (40-54); HEMOGLOBIN 13.9 G/DL (13.3-17.7); LYMPHOCYTES % (AUTO) 17 % (12-44); MEAN CORPUSCULAR HEMOGLOBIN 32 PG (25-34); MEAN CORPUSCULAR HGB CONC 34 G/DL (32-36); MEAN CORPUSCULAR VOLUME 94 FL (80-99); MEAN PLATELET VOLUME 9.3 FL (7.4-10.4); MONOCYTES % (AUTO) 8 % (0-12); NEUTROPHILS % (AUTO) 71 % (42-75); PLATELET COUNT 222 10^3/uL (130-400); WHITE BLOOD COUNT 8.7 10^3/uL (4.3-11.0)
[2020-07-18 18:50] LABS: BASOPHILS # (AUTO) 0.1 10^3/uL (0.0-0.1); EOSINOPHILS # (AUTO) 0.3 10^3/uL (0.0-0.3); LYMPHOCYTES # (AUTO) 1.5 X 10^3 (1.0-4.0); MONOCYTES # (AUTO) 0.7 X 10^3 (0.0-1.0); NEUTROPHILS # (AUTO) 6.1 X 10^3 (1.8-7.8)
--- NOTE | 2020-07-18 18:58 | Diagnostic Imaging Report ---
EXAMINATION: Chest, 1 view. HISTORY: Weakness. COMPARISON: Chest radiograph 09/24/2019. FINDINGS: Heart size and pulmonary vasculature are normal. Surgical changes from CABG. The lungs are clear without consolidation, pleural effusion or pneumothorax. The osseous structures are intact. IMPRESSION: No acute radiographic abnormality in the chest. Dictated by: Dictated on workstation # [id number]
[2020-07-18 19:14] LABS: BUN/CREATININE RATIO 26; CARBON DIOXIDE 22 MMOL/L (21-32); CHLORIDE 107 MMOL/L (98-107); CREATININE SERUM 1.38 MG/DL (0.60-1.30); GFR ESTIMATED 49; POTASSIUM 4.2 MMOL/L (3.6-5.0); SODIUM 143 MMOL/L (135-145)
[2020-07-18 19:15] LABS: ALANINE AMINOTRANSFERASE 13 U/L (0-55); ALBUMIN 4.5 GM/DL (3.2-4.5); ALKALINE PHOSPHATASE 82 U/L (40-136); BILIRUBIN,TOTAL 0.3 MG/DL (0.1-1.0); CALCIUM 9.3 MG/DL (8.5-10.1); GLUCOSE 99 MG/DL (70-105); TOTAL PROTEIN 6.7 GM/DL (6.4-8.2)
[2020-07-18 19:55] VITALS: BP 144/63
== END 2020-07-18 19:55 | disposition home or self-care (01) ==
LOC: EDUNIT# 18:12 → ER FS 18:13
DX: R53.1 Weakness (principal); I10 Essential (primary) hypertension; Z87.891 Personal history of nicotine dependence
CPT/HCPCS: 36415; 71045; 80053; 84484; 85025

== ENCOUNTER 2020-11-14 16:30 | Observation (INO) | payer MEDICARE, OTHER ==
[~2020-11-14] VITALS: Ht 177.8 cm; Wt 69.3 kg
--- NOTE | 2020-11-14 16:44 | ED GI ---
General Stated Complaint: DIARRHEA Source of Information: Patient, EMS History of Present Illness Date Seen by Provider: Nov 14, 2020 Time Seen by Provider: 16:40 Initial Comments 85-year-old male presents via EMS from [facility] with complaint of having diarrhea this afternoon prior to arrival. Also noted to be breaking out in a cold sweat. He did complain of abdominal cramping. Denied chest pain or shortness of air. No recent illness reported. Patient is a DNR status Allergies and Home Medications Allergies Coded Allergies: No Known Drug Allergies (Unverified , 09/24/19) Home Medications Sulfamethoxazole/Trimethoprim 1 Each Tablet, 1 EACH PO BID Prescribed by: SUBHA CROWE on 11/22/19313 Patient Home Medication List Home Medication List Reviewed: Yes Review of Systems Review of Systems Constitutional: malaise, weakness EENTM: No Symptoms Reported Respiratory: No Symptoms Reported Cardiovascular: No Symptoms Reported Gastrointestinal: See HPI, Abdominal Pain, Diarrhea; Denies Vomiting Skin: No rash; other (cold sweat) Past Rqqjmad-Bbcjfo-Vqymtt Hx Past Med/Social Hx: Reviewed Nursing Past Med/Soc Hx Patient Social History Type Used: Cigarettes Former Smoker, Quit: Aug 21, 1979 2nd Hand Smoke Exposure: No Recent Hopitalizations: No Immunizations Up To Date Date of Pneumonia Vaccine: Jun 01, 2015 Date of Influenza Vaccine: Mar 21, 2019 Seasonal Allergies Seasonal Allergies: No Past Medical History Surgeries: Yes (ROTATOR CUFF REPAIR) CABG, Orthopedic Respiratory: Yes COPD Cardiac: Yes Coronary Artery Disease, Heart Attack, High Cholesterol, Hypertension Neurological: Yes Dementia Genitourinary: Yes Prostate Problems, Renal Failure Gastrointestinal: Yes Gastroesophageal Reflux, Chronic Constipation Arthritis, Chronic Back Pain Endocrine: Yes Hypothyroidsim, Diabetes, Non-Insulin dep HEENT: No Cancer: No Psychosocial: Yes Sleep Difficulties, Anxiety, Depression Integumentary: No Blood Disorders: No Physical Exam Vital Signs Vital Signs - First Documented 11/14/20 16:33 Temp 36.4 Pulse 70 Resp 26 B/P (MAP) 120/58 (78) Pulse Ox 98 O2 Delivery Room Air Capillary Refill : Height/Weight/BMI Height: '" Weight: lbs. oz. kg; 22.00 BMI Method: General Appearance: WD/WN, no apparent distress HEENT: PERRL/EOMI, normal ENT inspection Respiratory: chest non-tender, lungs clear Cardiovascular: regular rate, rhythm, no edema, no JVD Gastrointestinal: soft, no organomegaly, no pulsatile mass; No distended; guarding; No rebound; tenderness (epigastric); No mass, No hepatomegaly, No spleenomegaly Back: normal inspection, no CVA tenderness Focused Exam Lactate Level 11/14/20 16:50: Lactic Acid Level 2.52*H 11/14/20 18:30: Lactic Acid Level 3.06*H Lactic Acid Level Laboratory Tests Test 11/14/20 16:50 11/14/20 18:30 Lactic Acid Level 2.52 MMOL/L (0.50-2.00) *H 3.06 MMOL/L (0.50-2.00) *H Procedures/Interventions Suture Size: 4-0 Progress/Results/Core Measures Results/Orders Lab Results Laboratory Tests Test 11/14/20 16:50 11/14/20 18:30 11/14/20 19:20 11/14/20 19:38 Range/Units White Blood Count 10.1 4.3-11.0 10^3/uL Red Blood Count 4.74 4.35-5.85 10^6/uL Hemoglobin 15.2 13.3-17.7 G/DL Hematocrit 45 40-54 % Mean Corpuscular Volume 94 80-99 FL Mean Corpuscular Hemoglobin 32 25-34 PG Mean Corpuscular Hemoglobin Concent 34 32-36 G/DL Red Cell Distribution Width 11.9 10.0-14.5 % Platelet Count 278 130-400 10^3/uL Mean Platelet Volume 9.6 7.4-10.4 FL Immature Granulocyte % (Auto) 0 % Neutrophils (%) (Auto) 70 42-75 % Lymphocytes (%) (Auto) 17 12-44 % Monocytes (%) (Auto) 9 0-12 % Eosinophils (%) (Auto) 4 0-10 % Basophils (%) (Auto) 1 0-10 % Neutrophils # (Auto) 7.1 1.8-7.8 X 10^3 Lymphocytes # (Auto) 1.7 1.0-4.0 X 10^3 Monocytes # (Auto) 0.9 0.0-1.0 X 10^3 Eosinophils # (Auto) 0.4 H 0.0-0.3 10^3/uL Basophils # (Auto) 0.1 0.0-0.1 10^3/uL Immature Granulocyte # (Auto) 0.0 0.0-0.1 10^3/uL D-Dimer 2.23 H 0.00-0.49 UG/ML Sodium Level 148 H 135-145 MMOL/L Potassium Level 3.9 3.6-5.0 MMOL/L Chloride Level 107 98-107 MMOL/L Carbon Dioxide Level 26 21-32 MMOL/L Anion Gap 15 H 5-14 MMOL/L Blood Urea Nitrogen 28 H 7-18 MG/DL Creatinine 1.67 H 0.60-1.30 MG/DL Estimat Glomerular Filtration Rate 39 BUN/Creatinine Ratio 17 Glucose Level 126 H 70-105 MG/DL Lactic Acid Level 2.52 *H 3.06 *H 0.50-2.00 MMOL/L Calcium Level 10.4 H 8.5-10.1 MG/DL Corrected Calcium 8.5-10.1 MG/DL Total Bilirubin 0.5 0.1-1.0 MG/DL Aspartate Amino Transf (AST/SGOT) 25 5-34 U/L Alanine Aminotransferase (ALT/SGPT) 14 0-55 U/L Alkaline Phosphatase 89 40-136 U/L Troponin I < 0.30 <0.30 NG/ML Total Protein 7.6 6.4-8.2 GM/DL Albumin 5.1 H 3.2-4.5 GM/DL Lipase 82 H 8-78 U/L Arterial Blood pH 7.34 *L 7.37-7.43 Urine Color YELLOW Urine Clarity CLEAR Urine pH 5.5 5-9 Urine Specific [place] 1.020 1.016-1.022 Urine Protein NEGATIVE NEGATIVE Urine Glucose (UA) NEGATIVE NEGATIVE Urine Ketones NEGATIVE NEGATIVE Urine Nitrite NEGATIVE NEGATIVE Urine Bilirubin NEGATIVE NEGATIVE Urine Urobilinogen 0.2 < = 1.0 MG/DL Urine Leukocyte Esterase NEGATIVE NEGATIVE Urine RBC (Auto) NEGATIVE NEGATIVE Urine RBC 0-2 /HPF Urine WBC NONE /HPF Urine Squamous Epithelial Cells 5-10 /HPF Urine Crystals NONE /LPF Urine Bacteria FEW H /HPF Urine Casts PRESENT /LPF Urine Hyaline Casts 10-25 H /LPF Urine Granular Casts 0-2 H /LPF Urine Coarse Granular Casts 0-2 H /LPF Urine Mucus NEGATIVE /LPF Urine Culture Indicated YES My Orders Orders - RODEIDRASTCARRIE KELLER DO Ed Iv/Invasive Line Start (11/14/20 16:44) Cbc With Automated Diff (11/14/20 16:44) Comprehensive Metabolic Panel (11/14/20 16:44) Fibrin Degradation Products (11/14/20 16:44) Lactic Acid Analyzer (11/14/20 16:44) Ekg Tracing (11/14/20 16:44) Acute Abd Series (11/14/20 16:44) Ns Iv 1000 Ml (Sodium Chloride 0.9%) (11/14/20 16:45) Ondansetron Injection (Zofran Injectio (11/14/20 16:45) Blood Culture (11/14/20 15:50) Lactic Acid Analyzer (11/14/20 18:15) Blood Culture (11/14/20 18:45) Troponin I Fs (11/14/20 19:00) Urinalysis (11/14/20 19:03) Ns Iv 1000 Ml (Sodium Chloride 0.9%) (11/14/20 19:15) Abg Ph (11/14/20 19:05) Lipase (11/14/20 19:08) Ceftriaxone For Iv Use (Rocephin For I (11/14/20 19:15) Catheter(Urinary) Insert & Ass 03,15 (11/14/20 19:41) Urine Culture (11/14/20 19:38) Medications Given in ED Current Medications Medications Dose Ordered Sig/[place]o Route Start Time Stop Time Status Last Admin Dose Admin Ceftriaxone Sodium 1000 mg/ Sterile Water 10 ml @ 200 mls/hr ONCE ONCE IV 11/14/20 19:15 11/14/20 19:17 DC 11/14/20 19:34 200 MLS/HR Ondansetron HCl 4 mg ONCE ONCE IVP 11/14/20 16:45 11/14/20 16:46 DC 11/14/20 17:37 4 MG Vital Signs/I&O 11/14/20 16:33 Temp 36.4 Pulse 70 Resp 26 B/P (MAP) 120/58 (78) Pulse Ox 98 O2 Delivery Room Air Initial ECG Impression Date: Nov 14, 2020 Initial ECG Impression Time: 16:50 Initial ECG Rate: 53 Initial ECG Rhythm: Normal Sinus Initial ECG Intervals: Normal Initial ECG Comparisson: No Previous ECG Available Diagnostic Imaging Diagonstic Imaging: Xray Comments COMPARISON: Chest radiograph 07/18/2020. FINDINGS: Heart size is normal with surgical changes from CABG. The pulmonary vasculature are normal. The lungs are clear without consolidation, pleural effusion, or pneumothorax. Chronic appearing right rib fractures. The osseous structures are otherwise intact. There is moderate amount of gas and stool throughout the colon. Nonobstructive bowel gas pattern. No radiopaque foreign body. Degenerative changes of the hips and spine. Osseous structures are otherwise intact. IMPRESSION: No acute abnormality in the chest or abdomen. Dictated on workstation # [id number] Dict: 11/14/20 172 Trans: 11/14/201726 [facility] [id number] Interpreted by: RONALD KULKARNI DO Electronically signed by: Departure Communication (Admissions) Time/Spoke to Admitting Phy: 19:49 discussed HPI, presentation, labs and tx initiated in ER. Dr Andrews accepts for OBS admission Impression Primary Impression: Dehydration Additional Impression: Diarrhea Qualified Codes: R19.7 - Diarrhea, unspecified Disposition: 30 STILL A PATIENT Condition: Stable Admissions Decision to Admit Reason: Admit from ER (General) Decision to Admit/Date: Nov 14, 2020 Time/Decision to Admit Time: 19:49 Departure-Patient Inst. Referrals: CHANDA CANO MD (PCP/Family) Primary Care Physician CARRIE GROSSMAN DO Nov 14, 2020 16:44
[2020-11-14] MEDS ORDERED: NS IV 1000 ML 1,000 ML IV SCH ×2 (16:45→19:15)
[2020-11-14] MEDS ORDERED: ONDANSETRON 4 MG/2 ML (SDV) Z0FRAN IVP ONE (16:45)
[2020-11-14 17:00] LABS: BASOPHILS # (AUTO) 0.1 10^3/uL (0.0-0.1); BASOPHILS % (AUTO) 1 % (0-10); EOSINOPHILS # (AUTO) 0.4 10^3/uL (0.0-0.3); EOSINOPHILS % (AUTO) 4 % (0-10); HEMATOCRIT 45 % (40-54); HEMOGLOBIN 15.2 G/DL (13.3-17.7); LYMPHOCYTES # (AUTO) 1.7 X 10^3 (1.0-4.0); LYMPHOCYTES % (AUTO) 17 % (12-44); MEAN CORPUSCULAR HEMOGLOBIN 32 PG (25-34); MEAN CORPUSCULAR HGB CONC 34 G/DL (32-36); MEAN CORPUSCULAR VOLUME 94 FL (80-99); MEAN PLATELET VOLUME 9.6 FL (7.4-10.4); MONOCYTES # (AUTO) 0.9 X 10^3 (0.0-1.0); MONOCYTES % (AUTO) 9 % (0-12); NEUTROPHILS # (AUTO) 7.1 X 10^3 (1.8-7.8); NEUTROPHILS % (AUTO) 70 % (42-75); PLATELET COUNT 278 10^3/uL (130-400); WHITE BLOOD COUNT 10.1 10^3/uL (4.3-11.0)
[2020-11-14 17:19] LABS: ALANINE AMINOTRANSFERASE 14 U/L (0-55); ALBUMIN 5.1 GM/DL (3.2-4.5); ALKALINE PHOSPHATASE 89 U/L (40-136); BILIRUBIN,TOTAL 0.5 MG/DL (0.1-1.0); BUN/CREATININE RATIO 17; CALCIUM 10.4 MG/DL (8.5-10.1); CARBON DIOXIDE 26 MMOL/L (21-32); CHLORIDE 107 MMOL/L (98-107); CREATININE SERUM 1.67 MG/DL (0.60-1.30); GFR ESTIMATED 39; GLUCOSE 126 MG/DL (70-105); POTASSIUM 3.9 MMOL/L (3.6-5.0); SODIUM 148 MMOL/L (135-145); TOTAL PROTEIN 7.6 GM/DL (6.4-8.2)
--- NOTE | 2020-11-14 17:28 | Diagnostic Imaging Report ---
EXAMINATION: Abdominal series and chest radiograph. HISTORY: Epigastric pain. COMPARISON: Chest radiograph 07/18/2020. FINDINGS: Heart size is normal with surgical changes from CABG. The pulmonary vasculature is normal. The lungs are clear without consolidation, pleural effusion or pneumothorax. Chronic appearing right rib fractures. The osseous structures are otherwise intact. There is moderate amount of gas and stool throughout the colon. Nonobstructive bowel gas pattern. No radiopaque foreign body. Degenerative changes of the hips and spine. Osseous structures are otherwise intact. IMPRESSION: No acute abnormality in the chest or abdomen. Dictated by: Dictated on workstation # [id number]
[2020-11-14] MEDS ORDERED: cefTRIAXone FOR IV USE 1,000 MG in WATER (STERILE) FOR INJECTION 10 ML IV ONE (19:15)
[2020-11-14 19:48] LABS: BILIRUBIN,URINE NEGATIVE (NEGATIVE); CLARITY,URINE CLEAR; COLOR,URINE YELLOW; GLUCOSE, URINE (UA) NEGATIVE (NEGATIVE); KETONES,URINE NEGATIVE (NEGATIVE); LEUKOCYTE ESTERASE ,URINE NEGATIVE (NEGATIVE); NITRITE,URINE NEGATIVE (NEGATIVE); PH,URINE 5.5 (5-9); PROTEIN,URINE NEGATIVE (NEGATIVE)
[2020-11-14 19:49] LABS: BACTERIA,URINE FEW /HPF; GRANULAR CASTS,URINE 0-2 /LPF; RBC,URINE 0-2 /HPF
[2020-11-14 21:45] VITALS: BP 133/57
[2020-11-14] MEDS ORDERED: ONDANSETRON 4 MG/2 ML (SDV) Z0FRAN IVP PRN (21:45)
[2020-11-14] MEDS ORDERED: ACETAMINOPHEN 500 MG TAB (TYLENOL) PO PRN (21:45)
[2020-11-14] MEDS: NS IV 1000 ML 1,000 ML IV SCH (22:17)
[2020-11-14 23:26] VITALS: BP 140/65
[2020-11-15] MEDS ORDERED: BTH10T PO (01:32)
[2020-11-15] MEDS ORDERED: SERT-413 PO (01:34)
[2020-11-15] MEDS ORDERED: ACET-2267 PO (01:36)
[2020-11-15] MEDS ORDERED: ZIPR60CA18 PO (01:41)
[2020-11-15] MEDS ORDERED: IBUP-16 PO (01:41)
[2020-11-15] MEDS ORDERED: MELA3TAB52 PO (01:41)
[2020-11-15] MEDS ORDERED: HALO5TAB PO (01:41)
[2020-11-15] MEDS ORDERED: IBUP-1779 PO (01:44)
[2020-11-15] MEDS ORDERED: BISA5TAB8 PO (01:44)
[2020-11-15] MEDS ORDERED: LOPE-134 PO (01:52)
[2020-11-15] MEDS ORDERED: MIRT15TA6 PO (01:52)
[2020-11-15] MEDS ORDERED: FURO20TA4 PO (01:52)
[2020-11-15] MEDS ORDERED: CARV3.122 PO (01:52)
[2020-11-15] MEDS ORDERED: CETI10TA17 PO (01:52)
[2020-11-15] MEDS ORDERED: LEVO100T7 PO (01:57)
[2020-11-15] MEDS ORDERED: TMSL.4C PO (01:57)
[2020-11-15] MEDS ORDERED: DICL100G31 TOP (01:57)
[2020-11-15] MEDS ORDERED: SIMV40TA25 PO (01:57)
[2020-11-15] MEDS ORDERED: FINA5TAB6 PO (01:57)
[2020-11-15] MEDS ORDERED: FLUT1DIS26 IH (02:01)
[2020-11-15] MEDS ORDERED: FAMO-119 PO (02:01)
[2020-11-15] MEDS ORDERED: GUAI600T43 PO (02:01)
[2020-11-15] MEDS ORDERED: MAGN400O7 PO (02:01)
[2020-11-15] MEDS ORDERED: ASPI-808 PO (02:09)
[2020-11-15] MEDS ORDERED: ALBUTEROL SULFATE IH (02:09)
[2020-11-15] MEDS ORDERED: DOCU-143 PO (02:09)
[2020-11-15] MEDS ORDERED: SENN-273 PO (02:16)
[2020-11-15 03:44] VITALS: BP 141/58
[2020-11-15] MEDS: NS IV 1000 ML 1,000 ML IV SCH ×2 (03:56→10:45)
[2020-11-15 05:38] LABS: ALBUMIN 3.6 GM/DL (3.2-4.5); POTASSIUM 3.6 MMOL/L (3.6-5.0)
[2020-11-15 05:39] LABS: CALCIUM 8.5 MG/DL (8.5-10.1)
[2020-11-15 05:41] LABS: TOTAL PROTEIN 5.4 GM/DL (6.4-8.2)
[2020-11-15 05:42] LABS: BILIRUBIN,TOTAL 0.4 MG/DL (0.1-1.0)
[2020-11-15 05:44] LABS: CREATININE SERUM 1.32 MG/DL (0.60-1.30)
[2020-11-15 05:50] LABS: BASOPHILS % (AUTO) 0 % (0-10); EOSINOPHILS % (AUTO) 0 % (0-10); HEMATOCRIT 35 % (40-54); HEMOGLOBIN 11.6 g/dL (13.3-17.7); LYMPHOCYTES # (AUTO) 0.5 10^3/uL (1.0-4.0); LYMPHOCYTES % (AUTO) 3 % (12-44); MEAN CORPUSCULAR HEMOGLOBIN 32 pg (25-34); MEAN CORPUSCULAR HGB CONC 34 g/dL (32-36); MEAN CORPUSCULAR VOLUME 95 fL (80-99); MEAN PLATELET VOLUME 9.7 fL (9.0-12.2); MONOCYTES # (AUTO) 1.1 10^3/uL (0.0-1.0); MONOCYTES % (AUTO) 6 % (0-12); NEUTROPHILS # (AUTO) 16.8 10^3/uL (1.8-7.8); NEUTROPHILS % (AUTO) 91 % (42-75); PLATELET COUNT 164 10^3/uL (130-400); WHITE BLOOD COUNT 18.5 10^3/uL (4.3-11.0)
[2020-11-15 06:23] LABS: BAND NEUTROPHILS 1 %; LYMPHOCYTES % (MANUAL) 4 %; MONOCYTES % (MANUAL) 7 %; NEUTROPHILS % (MANUAL) 88 %
[2020-11-15 06:24] LABS: RBC MORPH NORMAL
--- NOTE | 2020-11-15 07:17 | History & Physical-Hospitalist ---
History of Present Illness HPI/Chief Complaint CC: N/V HPI: This is an 85yo[place] patient of Dr Hoffman who presented to [facility] ER with N/V and diarrhea. Dementia precludes details. DC catheter since he is pulling on it. Abx initiated in case this is diverticulitis. Dr Faye consulted. Source: RN/ Exam Limitations: clinical condition, other (dementia) Date Seen 11/15/20 Time Seen by a Provider: 13:00 Attending Physician Cassy Andrews Maxwell MD Referring Physician Date of Admission Nov 14, 2020 at 21:53 Home Medications & Allergies Home Medications Reviewed patient Home Medication Reconciliation performed by pharmacy medication reconciliations precision optics technician and/or nursing. Patients Allergies have been reviewed. Allergies Allergies Coded Allergies No Known Drug Allergies (Unverified09/24/19) Past Suddkks-Fzduph-Sxduin Hx Past Med/Social Hx: Reviewed Nursing Past Med/Soc Hx, Reviewed and Corrections made Patient Social History Marrital Status: single Employed/Student: retired Alcohol Use: Denies Use Recreational Drug Use: No Smoking Status: Unknown if Ever Smoked Former Smoker, Quit: Aug 21, 1979 Type Used: Cigarettes 2nd Hand Smoke Exposure: No Recent Foreign Travel: No Contact w/other who traveled: No Recent Hopitalizations: No Recent Infectious Disease Expo: No Immunizations Up To Date Date of Pneumonia Vaccine: Jun 01, 2015 Date of Influenza Vaccine: Mar 21, 2019 Seasonal Allergies Seasonal Allergies: No Past Medical History Surgeries: CABG, Orthopedic Cardiac: Coronary Artery Disease, Heart Attack, High Cholesterol, Hypertension Neurological: Dementia Genitourinary: Prostate Problems, Renal Failure Gastrointestinal: Gastroesophageal Reflux, Chronic Constipation Musculoskeletal: Arthritis, Chronic Back Pain Endocrine: Hypothyroidsim, Diabetes, Non-Insulin dep Psychosocial: Sleep Difficulties, Anxiety, Depression History of Blood Disorders: No Review of Systems Constitutional: see HPI Gastrointestinal: abdominal pain Physical Exam Physical Exam Vital Signs Vital Signs - First Documented 11/14/20 16:33 Temp 36.4 Pulse 70 Resp 26 B/P (MAP) 120/58 (78) Pulse Ox 98 O2 Delivery Room Air Capillary Refill : Less Than 3 Seconds Height, Weight, BMI Height: '" Weight: lbs. oz. kg; 21.92 BMI Method: General Appearance: No Apparent Distress, Chronically ill, Thin Respiratory: Lungs Clear Cardiovascular: Regular Rate, Rhythm Neurologic/Psychiatric: Alert, Disoriented Results Results/Procedures Labs Laboratory Tests 11/14/20 16:50 11/15/20 05:19 Patient resulted labs reviewed. Assessment/Plan Admission Diagnosis Assessment: N/V/D Dementia severe YOLI HTN Hypernatremia Leukocytosis Plan: Empiric abx Change IVF Dr Faye consulted Admission Status: Observation Diagnosis/Problems Diagnosis/Problems (1) Diarrhea Status: Acute Qualifiers: Diarrhea type: unspecified type Qualified Codes: R19.7 - Diarrhea, unspecified (2) Dehydration Status: Acute (3) Weakness Status: Acute CASSY ANDREWS DO Nov 15, 2020 07:17
[2020-11-15 08:00] VITALS: BP 143/64
[2020-11-15 12:00] VITALS: BP 146/65
[2020-11-15] MEDS ORDERED: HYDROcodone/APAP 5 MG/325 MG (LORTAB) TAB PO PRN (13:15)
[2020-11-15] MEDS ORDERED: ZIPRASIDONE 20 MG INJ (GEODON) VIAL IM PRN (13:15)
[2020-11-15] MEDS ORDERED: HALOPERIDOL 5 MG/ML (HALDOL) VIAL IM PRN (13:15)
[2020-11-15] MEDS ORDERED: MELATONIN 3 MG TABLET PO PRN (13:15)
[2020-11-15] MEDS ORDERED: CALCIUM CARBONATE 500 MG (TUMS) TAB.CHEW PO PRN (13:15)
[2020-11-15] MEDS ORDERED: ONDANSETRON 4 MG/2 ML (SDV) Z0FRAN IVP PRN (13:15)
[2020-11-15] MEDS ORDERED: fentaNYL INJ 100 MCG/2 ML AMP IVP PRN (13:15)
[2020-11-15] MEDS ORDERED: diphenhydrAMINE 25 MG TAB (BENADRYL) PO PRN (13:15)
[2020-11-15] MEDS ORDERED: ACETAMINOPHEN 500 MG TAB (TYLENOL) PO PRN (13:15)
--- NOTE | 2020-11-15 13:16 | Consultation - Surgery ---
JENNIFER RENDON MED STUDENT 11/15/20 1316: History of Present Illness History of Present Illness Patient Consulted On(dinesh/time) 11/15/20 13:16 Date Seen by Provider: Nov 15, 2020 Time Seen by Provider: 09:00 History of Present Illness Per ED "85-year-old male presents via EMS from [facility] with complaint of having diarrhea this afternoon prior to arrival. Also noted to be breaking out in a cold sweat. He did complain of abdominal cramping. Denied chest pain or shortness of air. No recent illness reported. Patient is a DNR status" Pt has a hx of dementia. When I talked to him he was only oriented to person and took him about a minute to remember his name. States that he does have abdominal pain that he says is a 10. There is some guarding noted. He stopped being able to respond to my questions at this point. He does have a blue in. And a noticeable hand tremor. Appears to be in some distress. Nurse states he refused to eat this morning. Had 2 pasty bowel movements. Stated he did have dehydration when he came in as well. No mention of blood in BM. He came from a [facility] in [place]. Unable to gather anymore history from pt. Allergies and Home Medications Allergies Coded Allergies: No Known Drug Allergies (Unverified , 09/24/19) Home Medications Acetaminophen 500 Mg Tablet, 1,000 MG PO Q8H PRN for TEMPATURE OR MILD PAIN 1-4, (Reported) Aspirin 325 Mg Tablet, 325 MG PO DAILY, (Reported) Bethanechol Chloride 10 Mg Tablet, 10 MG PO ACHS, (Reported) Bisacodyl 5 Mg Tablet.dr, 5 MG PO DAILY PRN for CONSTIPATION-1ST LINE, (Reported) Carvedilol 3.125 Mg Tablet, 3.125 MG PO BID, (Reported) Cetirizine HCl 10 Mg Tablet, 10 MG PO DAILY, (Reported) Diclofenac Sodium 100 Gm Gel..gram., 4 GM TOP BID, (Reported) APPLY TO LUMBAR SPINE, BUTTOCKS, BACKS OF UPPER LEGS BID Docusate Sodium 100 Mg Capsule, 100 MG PO DAILY, (Reported) Famotidine 20 Mg Tablet, 20 MG PO BID, (Reported) Finasteride 5 Mg Tablet, 5 MG PO HS, (Reported) Fluticasone/Salmeterol 1 Each Blst.w.dev, 1 PUFF IH BID, (Reported) Guaifenesin 600 Mg Tab.er.12h, 600 MG PO BID PRN for CONGESTION, (Reported) Haloperidol 5 Mg Tablet, 5 MG PO Q6H PRN for AGITATION, (Reported) Ibuprofen 400 Mg Tablet, 400 MG PO QID, (Reported) TAKES AT 0800,1200,1600, 2000 Levothyroxine Sodium 100 Mcg Tablet, 100 MCG PO DAILY, (Reported) TAKES AT 0730 Loperamide HCl 2 Mg Tablet, 4 MG PO QID PRN for DIARRHEA, (Reported) GIVE 2 TABS PRN AFTER EACH LOOSE STOOL, 4 TIMES DAILY (MAX DOSE 16MG/DAY) Magnesium Hydroxide 400 Mg/5 Ml Oral.susp, 30 ML PO DAILY PRN for CONSTIPATION- 1ST LINE, (Reported) Melatonin 3 Mg Tab.rapdis, 6 MG PO HS, (Reported) Mirtazapine 15 Mg Tablet, 15 MG PO HS, (Reported) Sennosides/Docusate Sodium 1 Each Tablet, 1 TAB PO DAILY PRN for CONSTIPATION- 1ST LINE, (Reported) Sertraline HCl 50 Mg Tablet, 50 MG PO DAILY, (Reported) Simvastatin 40 Mg Tablet, 40 MG PO HS, (Reported) Tamsulosin HCl 0.4 Mg Cap, 0.4 MG PO BID, (Reported) Ziprasidone HCl 60 Mg Capsule, 60 MG PO BID, (Reported) TAKES WITH FOOD AT 1200 AND 1700 [Albuterol Sulfate] 90 MCG , 1 PUFF IH DAILY PRN PRN for SHORTNESS OF BREATH, (Reported) Patient Home Medication List Home Medication List Reviewed: Yes Past Kgdetor-Yogunb-Iwfggt Hx Patient Social History Former Smoker, Quit: Aug 21, 1979 Type Used: Cigarettes 2nd Hand Smoke Exposure: No Recent Hopitalizations: No Alcohol Use?: No Have you traveled recently?: No Immunizations Up To Date Date of Pneumonia Vaccine: Jun 01, 2015 Date of Influenza Vaccine: Mar 21, 2019 Seasonal Allergies Seasonal Allergies: No Surgeries History of Surgeries: Yes (ROTATOR CUFF REPAIR) Surgeries: CABG, Orthopedic Respiratory History of Respiratory Disorde: Yes Respiratory Disorders: COPD Cardiovascular History of Cardiac Disorders: Yes Cardiac Disorders: Coronary Artery Disease, Heart Attack, High Cholesterol, Hypertension Neurological History of Neurological Disord: Yes Neurological Disorders: Dementia Genitourinary History of Genitourinary Disor: Yes Genitourinary Disorders: Prostate Problems, Renal Failure Gastrointestinal History of Gastrointestinal Di: Yes Gastrointestinal Disorders: Gastroesophageal Reflux, Chronic Constipation Musculoskeletal Musculoskeletal Disorders: Arthritis, Chronic Back Pain Endocrine History of Endocrine Disorders: Yes Endocrine Disorders: Hypothyroidsim, Diabetes, Non-Insulin dep HEENT History of HEENT Disorders: No Cancer History of Cancer: No Psychosocial History of Psychiatric Problem: Yes Behavioral Health Disorders: Sleep Difficulties, Anxiety, Depression Integumentary History of Skin or Integumenta: No Blood Transfusions History of Blood Disorders: No Family Medical History Other Pt has dementia and is unable to answer any questions. Review of Systems-General ROS-Unable to Obtain: Pt does not answer any ROS questions, unable to obtain except for ABD pain. Gastrointestinal: abdominal pain (Not able to localize, Says its a 10, nods " yes" when asked if it hurts) Physical Exam-General Problems Physical Exam Vital Signs Vital Signs - First Documented 11/14/20 16:33 Temp 36.4 Pulse 70 Resp 26 B/P (MAP) 120/58 (78) Pulse Ox 98 O2 Delivery Room Air Capillary Refill : Less Than 3 Seconds General Appearance: moderate distress, thin Respiratory: lungs clear, no respiratory distress, no accessory muscle use, decreased breath sounds Cardiovascular: regular rate, rhythm, no edema, systolic murmur Peripheral Pulses: 2+ Radial Pulses (R), 2+ Radial Pulses (L) Gastrointestinal: abnormal bowel sounds (Hyperactive), guarding (Involuntary) Rectal: deferred Extremities: no pedal edema, no calf tenderness Neurologic/Psychiatric: alert; No oriented x 3 (Person only); other (R hand tremor) Skin: No normal color (Some pallor); cool Data Review Labs Laboratory Tests 11/14/20 16:50: White Blood Count 10.1, Red Blood Count 4.74, Hemoglobin 15.2, Hematocrit 45, Mean Corpuscular Volume 94, Mean Corpuscular Hemoglobin 32, Mean Corpuscular Hemoglobin Concent 34, Red Cell Distribution Width 11.9, Platelet Count 278, Mean Platelet Volume 9.6, Immature Granulocyte % (Auto) 0, Neutrophils (%) (Auto) 70, Lymphocytes (%) (Auto) 17, Monocytes (%) (Auto) 9, Eosinophils (%) (Auto) 4, Basophils (%) (Auto) 1, Neutrophils # (Auto) 7.1, Lymphocytes # (Auto) 1.7, Monocytes # (Auto) 0.9, Eosinophils # (Auto) 0.4H, Basophils # (Auto) 0.1, Immature Granulocyte # (Auto) 0.0, D-Dimer 2.23H, Sodium Level 148H, Potassium Level 3.9, Chloride Level 107, Carbon Dioxide Level 26, Anion Gap 15H, Blood Urea Nitrogen 28H, Creatinine 1.67H, Estimat Glomerular Filtration Rate 39, BUN/Creatinine Ratio 17, Glucose Level 126H, Lactic Acid Level 2.52*H, Calcium Level 10.4H, Corrected Calcium , Total Bilirubin 0.5, Aspartate Amino Transf (AST/SGOT) 25, Alanine Aminotransferase (ALT/SGPT) 14, Alkaline Phosphatase 89, Troponin I < 0.30, Total Protein 7.6, Albumin 5.1H, Lipase 82H 11/14/20 18:30: Lactic Acid Level 3.06*H 11/14/20 19:20: Arterial Blood pH 7.34*L 11/14/20 19:38: Urine Color YELLOW, Urine Clarity CLEAR, Urine pH 5.5, Urine Specific [place] 1.020, Urine Protein NEGATIVE, Urine Glucose (UA) NEGATIVE, Urine Ketones NEGATIVE, Urine Nitrite NEGATIVE, Urine Bilirubin NEGATIVE, Urine Urobilinogen 0.2, Urine Leukocyte Esterase NEGATIVE, Urine RBC (Auto) NEGATIVE, Urine RBC 0- 2, Urine WBC NONE, Urine Squamous Epithelial Cells 5-10, Urine Crystals NONE, Urine Bacteria FEWH, Urine Casts PRESENT, Urine Hyaline Casts 10-25H, Urine Granular Casts 0-2H, Urine Coarse Granular Casts 0-2H, Urine Mucus NEGATIVE, Urine Culture Indicated YES 11/14/20 21:46: Glucometer 141H 11/15/20 05:19: White Blood Count 18.5H, Red Blood Count 3.62L, Hemoglobin 11.6L, Hematocrit 35L , Mean Corpuscular Volume 95, Mean Corpuscular Hemoglobin 32, Mean Corpuscular Hemoglobin Concent 34, Red Cell Distribution Width 11.9, Platelet Count 164, Mean Platelet Volume 9.7, Immature Granulocyte % (Auto) 1, Neutrophils (%) (Auto) 91H, Lymphocytes (%) (Auto) 3L, Monocytes (%) (Auto) 6, Eosinophils (%) (Auto) 0, Basophils (%) (Auto) 0, Neutrophils # (Auto) 16.8H, Lymphocytes # (Auto) 0.5L, Monocytes # (Auto) 1.1H, Eosinophils # (Auto) 0.0, Basophils # (Auto) 0.0, Immature Granulocyte # (Auto) 0.1, Neutrophils % (Manual) 88, Lympho cytes % (Manual) 4, Monocytes % (Manual) 7, Band Neutrophils 1, Blood Morphology Comment NORMAL, Sodium Level 149H, Potassium Level 3.6, Chloride Level 117#H, Carbon Dioxide Level 21, Anion Gap 11, Blood Urea Nitrogen 25H, Creatinine 1.32H , Estimat Glomerular Filtration Rate 52, BUN/Creatinine Ratio 19, Glucose Level 142H, Lactic Acid Level 1.21, Calcium Level 8.5, Corrected Calcium 8.8, Total Bilirubin 0.4, Aspartate Amino Transf (AST/SGOT) 16, Alanine Aminotransferase (ALT/SGPT) 11, Alkaline Phosphatase 58, Total Protein 5.4L, Albumin 3.6, Procalcitonin 0.10H Radiology ACUTE ABD SERIES EXAMINATION: Abdominal series and chest radiograph. HISTORY: Epigastric pain. COMPARISON: Chest radiograph 07/18/2020. FINDINGS: Heart size is normal with surgical changes from CABG. The pulmonary vasculature is normal. The lungs are clear without consolidation, pleural effusion or pneumothorax. Chronic appearing right rib fractures. The osseous structures are otherwise intact. There is moderate amount of gas and stool throughout the colon. Nonobstructive bowel gas pattern. No radiopaque foreign body. Degenerative changes of the hips and spine. Osseous structures are otherwise intact. IMPRESSION: No acute abnormality in the chest or abdomen. Assessment/Plan Assessment/Plan Admission Diagonsis Abdominal Pain -Chest xray does not show any sign of SBO or other pathology -Pt unable to localize pain, no known bleed at this time -May need CT, to look for possible source, there is Leukocytosis -Possible GI ulcers, diverticulitis, maybe EGD/Colonoscopy -Possible Stool study -Labs do not suggest Liver, galbladder, or pancreatic source of pain -Pain medication Leukocytosis -No known source of infection at this time -CXR does not suggest PNA, Only had few bacteria in urine -Start ABX, Continue to check daily CBC Hypernatremia -Na at 149 -Normal saline IV -Target 0.5mEq/hr correction -No more than 10-15 mEq/day CAIN SHANKAR DO 11/15/20 2221: History of Present Illness History of Present Illness Time Seen by Provider: 15:42 History of Present Illness Surgery asked to consult regarding abdominal pain. When I saw pt, his son was in the room. Son states sometimes his father is with it enough and that usually his complaints are real. Pt stated he had abdominal pain and pointed to lower abdomen. Unfortunately, he could not really answer any questions regarding how long it had been there, what made it better or worse or if it radiated anywhere. Allergies and Home Medications Allergies Coded Allergies: No Known Drug Allergies (Unverified , 09/24/19) Home Medications Acetaminophen 500 Mg Tablet, 1,000 MG PO Q8H PRN for TEMPATURE OR MILD PAIN 1-4, (Reported) Aspirin 325 Mg Tablet, 325 MG PO DAILY, (Reported) Bethanechol Chloride 10 Mg Tablet, 10 MG PO ACHS, (Reported) Bisacodyl 5 Mg Tablet.dr, 5 MG PO DAILY PRN for CONSTIPATION-1ST LINE, (Reported) Carvedilol 3.125 Mg Tablet, 3.125 MG PO BID, (Reported) Cetirizine HCl 10 Mg Tablet, 10 MG PO DAILY, (Reported) Diclofenac Sodium 100 Gm Gel..gram., 4 GM TOP BID, (Reported) APPLY TO LUMBAR SPINE, BUTTOCKS, BACKS OF UPPER LEGS BID Docusate Sodium 100 Mg Capsule, 100 MG PO DAILY, (Reported) Famotidine 20 Mg Tablet, 20 MG PO BID, (Reported) Finasteride 5 Mg Tablet, 5 MG PO HS, (Reported) Fluticasone/Salmeterol 1 Each Blst.w.dev, 1 PUFF IH BID, (Reported) Guaifenesin 600 Mg Tab.er.12h, 600 MG PO BID PRN for CONGESTION, (Reported) Haloperidol 5 Mg Tablet, 5 MG PO Q6H PRN for AGITATION, (Reported) Ibuprofen 400 Mg Tablet, 400 MG PO QID, (Reported) TAKES AT 0800,1200,1600, 2000 Levothyroxine Sodium 100 Mcg Tablet, 100 MCG PO DAILY, (Reported) TAKES AT 0730 Loperamide HCl 2 Mg Tablet, 4 MG PO QID PRN for DIARRHEA, (Reported) GIVE 2 TABS PRN AFTER EACH LOOSE STOOL, 4 TIMES DAILY (MAX DOSE 16MG/DAY) Magnesium Hydroxide 400 Mg/5 Ml Oral.susp, 30 ML PO DAILY PRN for CONSTIPATION- 1ST LINE, (Reported) Melatonin 3 Mg Tab.rapdis, 6 MG PO HS, (Reported) Mirtazapine 15 Mg Tablet, 15 MG PO HS, (Reported) Sennosides/Docusate Sodium 1 Each Tablet, 1 TAB PO DAILY PRN for CONSTIPATION- 1ST LINE, (Reported) Sertraline HCl 50 Mg Tablet, 50 MG PO DAILY, (Reported) Simvastatin 40 Mg Tablet, 40 MG PO HS, (Reported) Tamsulosin HCl 0.4 Mg Cap, 0.4 MG PO BID, (Reported) Ziprasidone HCl 60 Mg Capsule, 60 MG PO BID, (Reported) TAKES WITH FOOD AT 1200 AND 1700 [Albuterol Sulfate] 90 MCG , 1 PUFF IH DAILY PRN PRN for SHORTNESS OF BREATH, (Reported) Patient Home Medication List Home Medication List Reviewed: Yes Past Dzbbkfk-Effmry-Hjjufj Hx Patient Social History Smoking Status: Former Smoker Alcohol Use?: No Surgeries History of Surgeries: Yes Surgeries: CABG Respiratory History of Respiratory Disorde: No Cardiovascular History of Cardiac Disorders: Yes Cardiac Disorders: Coronary Artery Disease, Heart Attack, Hypertension Neurological History of Neurological Disord: Yes Neurological Disorders: Dementia Reproductive System Hx Reproductive Disorders: No Genitourinary History of Genitourinary Disor: Yes Genitourinary Disorders: Benign Prostatic Hyperpl, Prostate Problems, Renal Failure Gastrointestinal History of Gastrointestinal Di: Yes Gastrointestinal Disorders: Gastroesophageal Reflux, Chronic Constipation Musculoskeletal History of Musculoskeletal Dis: Yes Musculoskeletal Disorders: Arthritis, Chronic Back Pain Endocrine History of Endocrine Disorders: Yes Endocrine Disorders: Diabetes, Insulin dep, Hypothyroidsim HEENT History of HEENT Disorders: Yes HEENT Disorders: Cataract Loss of Vision: Bilateral Hearing Impairment: Hard of Hearing Cancer History of Cancer: No Psychosocial Behavioral Health Disorders: Sleep Difficulties, Anxiety, Depression Integumentary History of Skin or Integumenta: No Blood Transfusions History of Blood Disorders: No Family Medical History Significant Family History: Other Conditions/Hx (Son denied DM) Review of Systems-General ROS-Unable to Obtain: Pt does not answer any ROS questions, unable to obtain except for ABD pain. Physical Exam-General Problems Physical Exam General Appearance: mild distress, cachetic, thin Eyes: Bilateral Eye PERRL, Bilateral Eye EOMI HEENT: pharynx normal; No scleral icterus (R), No scleral icterus (L) Neck: limited range of motion; No thyromegaly Respiratory: lungs clear, no respiratory distress, no accessory muscle use, decreased breath sounds Cardiovascular: regular rate, rhythm, no edema, systolic murmur Gastrointestinal: abnormal bowel sounds (Hyperactive), guarding (Involuntary) Rectal: deferred Extremities: no pedal edema, no calf tenderness Neurologic/Psychiatric: No facial droop; disoriented x 3, other (R hand tremor) Skin: cool, pallor Lymphatic: no adenopathy (neck, axilla or groin) Data Review Radiology Date of Exam:11/15/20 CT ABDOMEN/PELVIS W EXAMINATION: CT abdomen and pelvis with intravenous contrast. TECHNIQUE: Multiple contiguous axial images were obtained through the abdomen and pelvis after the uneventful administration of intravenous contrast. All CT scans use one or more of the following dose optimizing techniques: automated exposure control, MA and/or KvP adjustment based on patient size and exam type or iterative reconstruction. HISTORY: Pelvic pain. COMPARISON: None available. FINDINGS: Lung bases: Atelectasis or scarring within the lung bases. There is a 0.4 cm left lower lobe pulmonary nodule. Solid organs: The liver is normal without focal lesion. The gallbladder is normal. There is no biliary ductal dilation. Pancreas is normal. Spleen is normal. Adrenal glands are normal. There is mild bilateral renal cortical scarring. There are multiple left renal cysts which require no follow-up. They are nonobstructing left renal calculi measuring up to 0.6 cm. No hydronephrosis. Bowel: The stomach and small bowel are normal without obstruction. There is large volume of inspissated stool within the rectal vault. There is scattered colonic diverticulosis. No findings of acute appendicitis. Peritoneum: There is no intraperitoneal free fluid or free air. No suspicious lymphadenopathy. Vasculature: Calcification of the aorta without aneurysm. Musculoskeletal: Degenerative changes of the spine without suspicious osseous lesion or compression fracture. Pelvis: The prostate gland is normal. There is diffuse bladder wall thickening. IMPRESSION: 1. Diffuse bladder wall thickening. Recommend correlation with urinalysis. 2. Large volume of inspissated stool within the rectal vault which can be seen with constipation or fecal impaction. 3. Colonic diverticulosis without findings of diverticulitis. 4. A 0.4 cm left lower lobe pulmonary nodule. Consider follow up CT chest in 6-12 months if patient is high-risk for malignancy. 5. Nonobstructing left renal calculi measuring up to 0.6 cm. No hydronephrosis. Dictated by: Dictated on workstation # [id number] Dict: 11/15/20 1834 Trans: 11/15/201850 [facility] [id number] Interpreted by: RONALD KULKARNI DO Electronically signed by: RONALD KULKARNI DO 11/15/201850 Assessment/Plan Assessment/Plan Assessment/Plan Constipation -Soap suds enemas until clear Abdominal Pain ??secondary to above -Chest xray does not show any sign of SBO or other pathology -Pt unable to localize pain, no known bleed at this time -Labs do not suggest Liver, galbladder, or pancreatic source of pain -Pain medication Leukocytosis -No known source of infection at this time, could be UTI and CT shows thickened bladder wall; however UA looks like dirty catch -CXR does not suggest PNA, Only had few bacteria in urine -Start ABX, Continue to check daily CBC Hypernatremia -Na at 149 -Normal saline IV -Target 0.5mEq/hr correction -No more than 10-15 mEq/day Supervisory-Addendum Brief Verification & Attestation Participated in pt care: history, MDM, physical Personally performed: exam, history, MDM Care discussed with: Medical Student Procedures: n/a Verification and Attestation of Medical Student E/M Service A medical student performed and documented this service. I then reviewed and verified all information documented by the medical student and made modifications to such information, when appropriate. I personally performed a physical exam, medical decision making and then discussed any differences between the notes and made revisions as necessary to create one note. Cain Shankar , 11/15/20 , 22:25 JENNIFER RENDON MED STUDENT Nov 15, 2020 13:16 CAIN SHANKAR DO Nov 15, 2020 22:21
[2020-11-15] MEDS: metroNIDAZOLE 500MG/100ML IVPB 100 ML IV SCH (13:51)
[2020-11-15] MEDS: ENOXAPARIN 40 MG/0.4 ML (LOVENOX) SYR SC SCH (13:51)
[2020-11-15] MEDS: D5 1/2 NS 1000 ML IV SOLUTION 1,000 ML IV SCH (13:52)
[2020-11-15 16:00] VITALS: BP 159/72
[2020-11-15] MEDS ORDERED: HOLD METFORMIN - RECEIVED CONTRAST 20 ML VIAL IV SCH (16:15)
[2020-11-15] MEDS ORDERED: IOHEXOL 350 MG/ML 100 ML (OMNIPAQUE 350) VIAL IV ONE (16:15)
[2020-11-15] MEDS ORDERED: NS 100 ML (IVPB) BAG IV ONE (16:15)
--- NOTE | 2020-11-15 18:49 | Diagnostic Imaging Report ---
EXAMINATION: CT abdomen and pelvis with intravenous contrast. TECHNIQUE: Multiple contiguous axial images were obtained through the abdomen and pelvis after the uneventful administration of intravenous contrast. All CT scans use one or more of the following dose optimizing techniques: automated exposure control, MA and/or KvP adjustment based on patient size and exam type or iterative reconstruction. HISTORY: Pelvic pain. COMPARISON: None available. FINDINGS: Lung bases: Atelectasis or scarring within the lung bases. There is a 0.4 cm left lower lobe pulmonary nodule. Solid organs: The liver is normal without focal lesion. The gallbladder is normal. There is no biliary ductal dilation. Pancreas is normal. Spleen is normal. Adrenal glands are normal. There is mild bilateral renal cortical scarring. There are multiple left renal cysts which require no follow-up. They are nonobstructing left renal calculi measuring up to 0.6 cm. No hydronephrosis. Bowel: The stomach and small bowel are normal without obstruction. There is large volume of inspissated stool within the rectal vault. There is scattered colonic diverticulosis. No findings of acute appendicitis. Peritoneum: There is no intraperitoneal free fluid or free air. No suspicious lymphadenopathy. Vasculature: Calcification of the aorta without aneurysm. Musculoskeletal: Degenerative changes of the spine without suspicious osseous lesion or compression fracture. Pelvis: The prostate gland is normal. There is diffuse bladder wall thickening. IMPRESSION: 1. Diffuse bladder wall thickening. Recommend correlation with urinalysis. 2. Large volume of inspissated stool within the rectal vault which can be seen with constipation or fecal impaction. 3. Colonic diverticulosis without findings of diverticulitis. 4. A 0.4 cm left lower lobe pulmonary nodule. Consider follow up CT chest in 6-12 months if patient is high-risk for malignancy. 5. Nonobstructing left renal calculi measuring up to 0.6 cm. No hydronephrosis. Dictated by: Dictated on workstation # [id number]
[2020-11-15] MEDS ORDERED: cefTRIAXone 1,000 MG/SWFI 10 ML IV PUSH IV SCH ×2 (19:00)
[2020-11-15] MEDS ORDERED: cefTRIAXone FOR IV USE 1,000 MG in WATER (STERILE) FOR INJECTION 10 ML IV SCH (19:00)
[2020-11-15 19:36] VITALS: BP 150/70
[2020-11-16] VITALS (7 sets, daily range): BP systolic 136–186; BP diastolic 62–83
[2020-11-16] MEDS: D5 1/2 NS 1000 ML IV SOLUTION 1,000 ML IV SCH ×3 (01:14→20:50)
[2020-11-16] MEDS: metroNIDAZOLE 500MG/100ML IVPB 100 ML IV SCH (01:14)
[2020-11-16 06:24] LABS: BASOPHILS % (AUTO) 0 % (0-10); EOSINOPHILS # (AUTO) 0.1 10^3/uL (0.0-0.3); EOSINOPHILS % (AUTO) 1 % (0-10); HEMATOCRIT 33 % (40-54); HEMOGLOBIN 10.6 g/dL (13.3-17.7); LYMPHOCYTES # (AUTO) 1.2 10^3/uL (1.0-4.0); LYMPHOCYTES % (AUTO) 11 % (12-44); MEAN CORPUSCULAR HEMOGLOBIN 32 pg (25-34); MEAN CORPUSCULAR HGB CONC 33 g/dL (32-36); MEAN CORPUSCULAR VOLUME 98 fL (80-99); MEAN PLATELET VOLUME 10.1 fL (9.0-12.2); MONOCYTES # (AUTO) 0.8 10^3/uL (0.0-1.0); MONOCYTES % (AUTO) 7 % (0-12); NEUTROPHILS # (AUTO) 8.3 10^3/uL (1.8-7.8); NEUTROPHILS % (AUTO) 80 % (42-75); PLATELET COUNT 129 10^3/uL (130-400); WHITE BLOOD COUNT 10.4 10^3/uL (4.3-11.0)
[2020-11-16 06:45] LABS: ALBUMIN 3.2 GM/DL (3.2-4.5)
[2020-11-16 06:46] LABS: CHLORIDE 115 MMOL/L (98-107); POTASSIUM 3.2 MMOL/L (3.6-5.0); SODIUM 144 MMOL/L (135-145)
[2020-11-16 06:47] LABS: CALCIUM 8.1 MG/DL (8.5-10.1)
[2020-11-16 06:48] LABS: GLUCOSE 117 MG/DL (70-105)
[2020-11-16 06:49] LABS: CARBON DIOXIDE 22 MMOL/L (21-32)
[2020-11-16 06:50] LABS: BILIRUBIN,TOTAL 0.4 MG/DL (0.1-1.0)
[2020-11-16 06:51] LABS: ALKALINE PHOSPHATASE 51 U/L (40-136)
[2020-11-16 06:52] LABS: CREATININE SERUM 0.92 MG/DL (0.60-1.30); GFR ESTIMATED > 60
[2020-11-16 06:53] LABS: BUN/CREATININE RATIO 21
[2020-11-16 06:54] LABS: ALANINE AMINOTRANSFERASE 12 U/L (0-55)
[2020-11-16] MEDS ORDERED: KCL 20 MEQ TAB (K-DUR) PO ONE (08:45)
[2020-11-16] MEDS ORDERED: MELA3TAB39 PO (09:43)
[2020-11-16] MEDS ORDERED: HALO10TA PO (09:43)
[2020-11-16] MEDS ORDERED: METH1ADH TP (09:43)
[2020-11-16] MEDS ORDERED: RT-ALBUINH IH (09:43)
--- NOTE | 2020-11-16 10:38 | Progress Note ---
MILAGROS LEONG,MED STUDENT 11/16/20 1038: Subjective Subjective/Events-last exam Patient seen and examined. He is unable to answer many questions due to his severe dementia. He states he continues to have abdominal pain that he localizes to the lower abdomen. He was given a soap suds enema at 0055 with moderate amount of formed brown stool. Review of Systems Gastrointestinal: Abdominal Pain Neurological: Other (dementia) Focused Exam Lactate Level 11/14/20 16:50: Lactic Acid Level 2.52*H 11/14/20 18:30: Lactic Acid Level 3.06*H 11/15/20 05:19: Lactic Acid Level 1.21 Objective Exam Last Set of Vital Signs Vital Signs Date Time Temp Pulse Resp B/P (MAP) Pulse Ox O2 Delivery O2 Flow Rate FiO2 11/16/20 08:00 36.0 89 16 173/72 (105) 96 Room Air Capillary Refill : Less Than 3 Seconds I&O Intake and Output 11/16/20 00:00 Intake Total 3260 ml Output Total 800 ml Balance 2460 ml Intake Oral 1260 ml IV Total 2000 ml Output Urine Total 800 ml # Urine Diapers 3 # Bowel Movements 1 General: No Acute Distress, Other (oriented to person only) HEENT: Atraumatic Neck: Other (no carotid bruit) Lungs: Clear to Auscultation Heart: Regular Rate (4/6 systolic murmur) Abdomen: Soft, Other (hyperactive bowel sounds, moderate tenderness to the lower abdomen ) Extremities: No Edema Psych/Mental Status: Other (dementia) Results/Procedures Lab Laboratory Tests 11/16/20 05:44: White Blood Count 10.4, Red Blood Count 3.32L, Hemoglobin 10.6L, Hematocrit 33L, Mean Corpuscular Volume 98, Mean Corpuscular Hemoglobin 32, Mean Corpuscular Hemoglobin Concent 33, Red Cell Distribution Width 12.2, Platelet Count 129L, Mean Platelet Volume 10.1, Immature Granulocyte % (Auto) 0, Neutrophils (%) (Auto) 80H, Lymphocytes (%) (Auto) 11L, Monocytes (%) (Auto) 7, Eosinophils (%) (Auto) 1, Basophils (%) (Auto) 0, Neutrophils # (Auto) 8.3H, Lymphocytes # (Auto) 1.2, Monocytes # (Auto) 0.8, Eosinophils # (Auto) 0.1, Basophils # (Auto) 0.0, Immature Granulocyte # (Auto) 0.0, Sodium Level 144, Potassium Level 3.2L, Chloride Level 115H, Carbon Dioxide Level 22, Anion Gap 7, Blood Urea Nitrogen 19H, Creatinine 0.92, Estimat Glomerular Filtration Rate > 60, BUN/Creatinine Ratio 21, Glucose Level 117H, Calcium Level 8.1L, Corrected Calcium 8.7, Total Bilirubin 0.4, Aspartate Amino Transf (AST/SGOT) 24, Alanine Aminotransferase (ALT/SGPT) 12, Alkaline Phosphatase 51, Total Protein 5.0L, Albumin 3.2 Microbiology 11/16/20 C. difficile GDH Antigen & Toxins - Final, Complete 11/14/20 Urine Culture - Final, Complete NO GROWTH 11/14/20 Blood Culture - Preliminary, Resulted No growth Radiology Date of Exam:11/15/20 CT ABDOMEN/PELVIS W EXAMINATION: CT abdomen and pelvis with intravenous contrast. TECHNIQUE: Multiple contiguous axial images were obtained through the abdomen and pelvis after the uneventful administration of intravenous contrast. All CT scans use one or more of the following dose optimizing techniques: automated exposure control, MA and/or KvP adjustment based on patient size and exam type or iterative reconstruction. HISTORY: Pelvic pain. COMPARISON: None available. FINDINGS: Lung bases: Atelectasis or scarring within the lung bases. There is a 0.4 cm left lower lobe pulmonary nodule. Solid organs: The liver is normal without focal lesion. The gallbladder is normal. There is no biliary ductal dilation. Pancreas is normal. Spleen is normal. Adrenal glands are normal. There is mild bilateral renal cortical scarring. There are multiple left renal cysts which require no follow-up. They are nonobstructing left renal calculi measuring up to 0.6 cm. No hydronephrosis. Bowel: The stomach and small bowel are normal without obstruction. There is large volume of inspissated stool within the rectal vault. There is scattered colonic diverticulosis. No findings of acute appendicitis. Peritoneum: There is no intraperitoneal free fluid or free air. No suspicious lymphadenopathy. Vasculature: Calcification of the aorta without aneurysm. Musculoskeletal: Degenerative changes of the spine without suspicious osseous lesion or compression fracture. Pelvis: The prostate gland is normal. There is diffuse bladder wall thickening. IMPRESSION: 1. Diffuse bladder wall thickening. Recommend correlation with urinalysis. 2. Large volume of inspissated stool within the rectal vault which can be seen with constipation or fecal impaction. 3. Colonic diverticulosis without findings of diverticulitis. 4. A 0.4 cm left lower lobe pulmonary nodule. Consider follow up CT chest in 6-12 months if patient is high-risk for malignancy. 5. Nonobstructing left renal calculi measuring up to 0.6 cm. No hydronephrosis. Dictated by: Dictated on workstation # [id number] Dict: 11/15/20 1834 Trans: 11/15/201850 [facility] [id number] Interpreted by: RONALD KULKARNI DO Electronically signed by: RONALD KULKARNI DO 11/15/201 Assessment/Plan Assessment/Plan (1) Fecal impaction in rectum Status: Acute Assessment & Plan: Continue soap meghan enemas until clear (2) Dementia Status: Chronic (3) Dehydration Status: Resolved Assessment & Plan: Electrolytes normalizing (4) BPH (benign prostatic hyperplasia) Status: Chronic Assessment & Plan: Restart home medications (5) Bladder wall thickening Status: Acute (6) Left lower lobe pulmonary nodule Status: Acute Assessment & Plan: Recommend repeat imaging in 6-12 months (7) DVT prophylaxis Status: Acute Assessment & Plan: Continue lovenox (8) Leukocytosis Status: Resolved Assessment & Plan: Discontinue antibiotics DOM PENNINGTON MD 11/16/20 1101: Supervisory-Addendum Brief Verification & Attestation Participated in pt care: history, MDM, physical Personally performed: exam, history, MDM Care discussed with: Medical Student Procedures: n/a I did my own history and exam and directed plan of care and my findings match those documented by OMVelvet Leong. MILAGROS LEONG,MED STUDENT Nov 16, 2020 10:38 DOM PENNINGTON MD Nov 16, 2020 11:01
[2020-11-16] MEDS ORDERED: BISACODYL 5 MG (DULCOLAX) TABLET PO PRN (10:45)
[2020-11-16] MEDS ORDERED: SENNA W/DOCUSATE (SENOKOT S) TABLET PO PRN (10:45)
[2020-11-16] MEDS ORDERED: MILK OF MAGNESIA 400 MG/5 ML 30 ML UDC PO PRN (10:45)
[2020-11-16] MEDS: BETHANECHOL 10 MG (URECHOLINE) TAB PO SCH ×4 (11:00→22:44)
[2020-11-16] MEDS: BISACODYL 10 MG SUPP (DULCOLAX) PR SCH (11:01)
[2020-11-16] MEDS ORDERED: ACETAMINOPHEN 325 MG TABLET PO PRN (11:15)
[2020-11-16] MEDS: ZIPRASIDONE 20 MG (GEODON) CAP PO SCH ×2 (12:00→16:39)
--- NOTE | 2020-11-16 15:14 | Progress Note - Surgery ---
Subjective Time Seen by a Provider: 14:22 Subjective/Events-last exam Pt seen and examined, denies abdominal pain. Nurse states he had BM last night and today; with enema and dulcolax Review of Systems Pulmonary: No Dyspnea, No Cough Cardiovascular: No: Chest Pain, Palpitations Gastrointestinal: No: Nausea, Vomiting, Abdominal Pain Focused Exam Lactate Level 11/14/20 16:50: Lactic Acid Level 2.52*H 11/14/20 18:30: Lactic Acid Level 3.06*H 11/15/20 05:19: Lactic Acid Level 1.21 Objective Exam Vital Signs Date Time Temp Pulse Resp B/P (MAP) Pulse Ox O2 Delivery O2 Flow Rate FiO2 11/16/20 12:00 36.1 79 20 186/83 (117) 94 Room Air 11/16/20 08:00 36.0 89 16 173/72 (105) 96 Room Air 11/16/20 08:00 Room Air 11/16/20 04:00 36.4 67 20 145/63 (90) 96 Room Air 11/16/20 00:00 35.9 74 19 140/79 (99) 96 Room Air 11/15/20 19:40 95 Room Air 11/15/20 19:36 36.8 86 19 150/70 (96) 95 Room Air 11/15/20 16:00 37.0 80 22 159/72 (101) 96 Room Air I & O 11/16/20 07:00 Intake Total 3360 ml Output Total 300 ml Balance 3060 ml Capillary Refill : Less Than 3 Seconds General Appearance: No Apparent Distress, Chronically ill, Thin Respiratory: Lungs Clear, No Accessory Muscle Use, No Respiratory Distress Cardiovascular: Regular Rate, Rhythm, No Murmur Peripheral Pulses: 2+ Radial Pulses (R), 2+ Radial Pulses (L) Gastrointestinal: non tender, soft, no organomegaly, abnormal bowel sounds (Hyperactive) Neurologic/Psychiatric: Alert, Disoriented Results Lab Laboratory Tests 11/16/20 05:44: White Blood Count 10.4, Red Blood Count 3.32L, Hemoglobin 10.6L, Hematocrit 33L, Mean Corpuscular Volume 98, Mean Corpuscular Hemoglobin 32, Mean Corpuscular Hemoglobin Concent 33, Red Cell Distribution Width 12.2, Platelet Count 129L, Mean Platelet Volume 10.1, Immature Granulocyte % (Auto) 0, Neutrophils (%) (Auto) 80H, Lymphocytes (%) (Auto) 11L, Monocytes (%) (Auto) 7, Eosinophils (%) (Auto) 1, Basophils (%) (Auto) 0, Neutrophils # (Auto) 8.3H, Lymphocytes # (Auto) 1.2, Monocytes # (Auto) 0.8, Eosinophils # (Auto) 0.1, Basophils # (Auto) 0.0, Immature Granulocyte # (Auto) 0.0, Sodium Level 144, Potassium Level 3.2L, Chloride Level 115H, Carbon Dioxide Level 22, Anion Gap 7, Blood Urea Nitrogen 19H, Creatinine 0.92, Estimat Glomerular Filtration Rate > 60, BUN/Creatinine Ratio 21, Glucose Level 117H, Calcium Level 8.1L, Corrected Calcium 8.7, Total Bilirubin 0.4, Aspartate Amino Transf (AST/SGOT) 24, Alanine Aminotransferase (ALT/SGPT) 12, Alkaline Phosphatase 51, Total Protein 5.0L, Albumin 3.2 Microbiology 11/16/20 C. difficile GDH Antigen & Toxins - Final, Complete 11/14/20 Urine Culture - Final, Complete NO GROWTH 11/14/20 Blood Culture - Preliminary, Resulted No growth Assessment/Plan Assessment/Plan Assessment/Plan Abd pain most likely secondary to Constipation -Dulcolax suppository, colace and increased fluids -No surgical intervention needed, will sign off Hypernatremia -Na at 149 -Normal saline IV -Target 0.5mEq/hr correction -No more than 10-15 mEq/day CAIN SHANKAR DO Nov 16, 2020 15:14
[2020-11-16] MEDS: ENOXAPARIN 40 MG/0.4 ML (LOVENOX) SYR SC SCH (15:24)
[2020-11-16] MEDS ORDERED: BISACODYL 10 MG SUPP (DULCOLAX) PR NR (18:00)
[2020-11-16] MEDS: DICLOFENAC 1% GEL 100 GM (VOLTAREN) TUBE TOP SCH (20:51)
[2020-11-16] MEDS: TAMSULOSIN 0.4 MG (FLOMAX) CAP PO SCH (20:51)
[2020-11-16] MEDS: MELATONIN 3 MG TABLET PO SCH ×2 (20:51→22:44)
[2020-11-16] MEDS: SIMvastatin 40 MG (ZOCOR) TAB PO SCH ×2 (20:52→22:44)
[2020-11-16] MEDS: FAMOTIDINE 20 MG (PEPCID) TABLET PO SCH ×2 (20:52→22:44)
[2020-11-16] MEDS: CARVEDILOL 3.125 MG (COREG) TABLET PO SCH (20:52)
[2020-11-16] MEDS: FINASTERIDE (PROSCAR) 5 MG TAB PO SCH ×2 (20:52→22:44)
[2020-11-16] MEDS: MIRTAZAPINE 15 MG (REMERON) TAB PO SCH ×2 (20:52→22:44)
[2020-11-16] MEDS: HALOPERIDOL 5 MG (HALDOL) TAB PO SCH ×2 (20:53→22:44)
[2020-11-16] MEDS ORDERED: FLUTICASONE/SALMETEROL 113-14 (AIRDUO RespiCLICK) IH SCH (21:00)
[2020-11-17 04:47] VITALS: BP 180/84
[2020-11-17] MEDS ORDERED: amLODIPine 5 MG (NORVASC) TAB ONE (04:58)
[2020-11-17] MEDS ORDERED: amLODIPine 5 MG (NORVASC) TAB PO ONE (05:00)
[2020-11-17 06:01] LABS: HEMOGLOBIN 11.8 g/dL (13.3-17.7); MEAN PLATELET VOLUME 9.7 fL (9.0-12.2); WHITE BLOOD COUNT 6.7 10^3/uL (4.3-11.0)
[2020-11-17 06:08] LABS: CHLORIDE 109 MMOL/L (98-107); POTASSIUM 3.1 MMOL/L (3.6-5.0); SODIUM 138 MMOL/L (135-145)
[2020-11-17 06:09] LABS: CALCIUM 8.2 MG/DL (8.5-10.1)
[2020-11-17 06:10] LABS: GLUCOSE 106 MG/DL (70-105)
[2020-11-17 06:11] LABS: CARBON DIOXIDE 21 MMOL/L (21-32)
[2020-11-17 06:14] LABS: BUN/CREATININE RATIO 12; CREATININE SERUM 0.82 MG/DL (0.60-1.30); GFR ESTIMATED > 60
[2020-11-17] MEDS: BETHANECHOL 10 MG (URECHOLINE) TAB PO SCH ×2 (06:53→11:06)
[2020-11-17] MEDS ORDERED: LEVOTHYROXINE 100 MCG (LEVOTHROID) TAB PO SCH (07:30)
[2020-11-17] MEDS ORDERED: KCL 20 MEQ TAB (K-DUR) PO NR (07:30)
[2020-11-17 08:00] VITALS: BP 171/79
[2020-11-17] MEDS: FAMOTIDINE 20 MG (PEPCID) TABLET PO SCH (08:49)
[2020-11-17] MEDS: TAMSULOSIN 0.4 MG (FLOMAX) CAP PO SCH (08:50)
[2020-11-17] MEDS: HALOPERIDOL 5 MG (HALDOL) TAB PO SCH (08:51)
[2020-11-17] MEDS: CARVEDILOL 3.125 MG (COREG) TABLET PO SCH (08:51)
[2020-11-17] MEDS: DICLOFENAC 1% GEL 100 GM (VOLTAREN) TUBE TOP SCH (08:54)
[2020-11-17] MEDS: POTASSIUM CL 10MEQ/50ML IVPB 50 ML IV SCH ×3 (08:55→12:27)
[2020-11-17] MEDS ORDERED: ASPIRIN 325 MG (5 GR) TABLET PO SCH (09:00)
[2020-11-17] MEDS ORDERED: DOCUSATE SODIUM 100 MG (COLACE) CAP PO SCH (09:00)
[2020-11-17] MEDS ORDERED: LORATADINE (CLARITIN) 10 MG TAB PO SCH (09:00)
[2020-11-17] MEDS: BISACODYL 10 MG SUPP (DULCOLAX) PR SCH (09:00)
[2020-11-17] MEDS ORDERED: SERTRALINE 50 MG (ZOLOFT) TABLET PO SCH (09:00)
[2020-11-17] MEDS: D5 1/2 NS 1000 ML IV SOLUTION 1,000 ML IV SCH (11:04)
[2020-11-17] MEDS ORDERED: SENN-273 PO (11:23)
[2020-11-17] MEDS ORDERED: BISA10SU8 PR (11:23)
--- NOTE | 2020-11-17 11:31 | Discharge Summary ---
MILAGROS LEONG,MED STUDENT 11/17/20 1119: Discharge Summary Hospital Course Problems Reviewed?: Yes Problems/Diagnosis: (1) Fecal impaction in rectum Status: Resolved Resolution Date/Time: 11/17/20 @ 11:22 Assessment & Plan: Several bowel movements after enemas and dulcolax. Patient improved. Continue home medications and prn suppositories (2) Dementia Status: Chronic Assessment & Plan: Continue home medications (3) Dehydration Status: Resolved Assessment & Plan: Electrolytes normalizing (4) BPH (benign prostatic hyperplasia) Status: Chronic Assessment & Plan: Continue home medications (5) Bladder wall thickening Status: Acute (6) Left lower lobe pulmonary nodule Status: Acute Assessment & Plan: Recommend repeat imaging in 6-12 months (7) Hypertension Status: Chronic Assessment & Plan: Received one time dose of amlodipine (8) Leukocytosis Status: Resolved Resolution Date/Time: 11/16/20 @ 10:46 Assessment & Plan: Resolved. D/Cd antibiotics 11/16 Hospital Course Date of Admission: Nov 14, 2020 at 21:53 Admission Diagnosis : Leukocytosis, diarrhea, dehydration Family Physician/Provider: Mario Hoffman MD Date of Discharge: 11/17/20 Discharge Diagnosis: Fecal impaction Hospital Course: Mr. Alves was admitted to the hospital from [facility] in [place] with nausea, vomiting, and diarrhea. He complained of abdominal pain that was lo calized in the lower abdomen. Abdomen/Pelvis CT showed large volume of inspissated stool in the rectal vault consistent with fecal impaction. CT was also positive for a left lower lobe pulmonary nodule with recommended follow-up CT in 6-12 months. He was treated with soap sudds enemas and dulcolax. He had several bowel movements since admission and is clinically improving with decr eased abdominal pain. He had an episode of hypertension and was treated with a one time dose of amlodipine. Labs and Pending Lab Test: Laboratory Tests 11/17/20 05:40: White Blood Count 6.7, Red Blood Count 3.64L, Hemoglobin 11.8L, Hematocrit 35L, Mean Corpuscular Volume 96, Mean Corpuscular Hemoglobin 32, Mean Corpuscular Hemoglobin Concent 34, Red Cell Distribution Width 12.0, Platelet Count 128L, Mean Platelet Volume 9.7, Sodium Level 138, Potassium Level 3.1L, Chloride Level 109H, Carbon Dioxide Level 21, Anion Gap 8, Blood Urea Nitrogen 10, Creatinine 0.82, Estimat Glomerular Filtration Rate > 60, BUN/Creatinine Ratio 12, Glucose Level 106H, Calcium Level 8.2L Microbiology 11/16/20 C. difficile GDH Antigen & Toxins - Final, Complete 11/14/20 Urine Culture - Final, Complete NO GROWTH 11/14/20 Blood Culture - Preliminary, Resulted No growth Home Meds Active Bisacodyl 10 Mg Supp.rect 10 Mg ID DAILY PRN Senna-S 8.6-50 mg Tablet (Sennosides/Docusate Sodium) 1 Each Tablet 1 Tab PO DAILY Reported Pain Relieving Patch (Methyl Salicylate/Menth/Camph) 1 Each Adh..patch 1 Each TP QID PRN DO NOT LEAVE ON MORE THAN 8 HOURS, DO NOT PLACE OVER MUSCLE CREAM, REMOVE AT LEAST 1 HOUR BEFORE SHOWER Haloperidol 10 Mg Tablet 5 Mg PO Q6H PRN Proair Hfa (Albuterol Sulfate) 1 Puff Puff 2 Puff IH DAILY PRN Melatonin 3 Mg Tablet 6 Mg PO HS Colace (Docusate Sodium) 100 Mg Capsule 100 Mg PO DAILY Aspirin 325 Mg Tablet 325 Mg PO DAILY Mucinex (Guaifenesin) 600 Mg Tab.er.12h 600 Mg PO BID PRN Milk of Magnesia (Magnesium Hydroxide) 400 Mg/5 Ml Oral.susp 30 Ml PO DAILY PRN Advair 250-50 Diskus (Fluticasone/Salmeterol) 1 Each Blst.w.dev 1 Puff IH BID Pepcid (Famotidine) 20 Mg Tablet 20 Mg PO BID Simvastatin 40 Mg Tablet 40 Mg PO HS Levothyroxine Sodium 100 Mcg Tablet 100 Mcg PO 0730 Flomax (Tamsulosin HCl) 0.4 Mg Cap 0.4 Mg PO BID Finasteride 5 Mg Tablet 5 Mg PO HS Diclofenac Sodium 100 Gm Gel..gram. 4 Gm TOP BID APPLY TO LUMBAR SPINE, BUTTOCKS, BACKS OF UPPER LEGS BID Cetirizine HCl 10 Mg Tablet 10 Mg PO DAILY Mirtazapine 15 Mg Tablet 15 Mg PO HS Carvedilol 3.125 Mg Tablet 3.125 Mg PO BID NOTIFY NURSE IF BP <120/60 Furosemide 20 Mg Tablet 20 Mg PO TUE,SAT Ibuprofen 400 Mg Tablet 400 Mg PO 0800,1200,1600,2000 Bisacodyl 5 Mg Tablet.dr 5 Mg PO DAILY PRN Haloperidol 5 Mg Tablet 2.5 Mg PO BID TAKES OF A 5MG TAB Ziprasidone HCl 60 Mg Capsule 60 Mg PO 1200,1700 W/ FOOD Tylenol Extra Strength (Acetaminophen) 500 Mg Tablet 1,000 Mg PO Q8H PRN Sertraline HCl 50 Mg Tablet 50 Mg PO DAILY Urecholine (Bethanechol Chloride) 10 Mg Tablet 10 Mg PO ACHS Assessment/Pt DC Instructions Will be seen at nursing facility by PCP Discharge Diet: No Restrictions Activity as Tolerated: Yes Discharge Physical Examination Allergies: Coded Allergies: No Known Drug Allergies (Unverified , 09/24/19) General Appearance: No Apparent Distress, WD/WN HEENT: Moist Mucous Membranes Respiratory: Lungs Clear, Normal Breath Sounds, No Accessory Muscle Use, No Re spiratory Distress Cardiovascular: Regular Rate, Rhythm, Normal Peripheral Pulses, Systolic Murmur (11/24) Gastrointestinal: Normal Bowel Sounds, Non Tender, Soft; No Distended, No Guarding Extremity: No Pedal Edema Skin: Normal Color Neurologic/Psychiatric: Alert, Normal Mood/Affect, Disoriented (Oriented to person and place only) Discharge Summary Date of Discharge DOM PENNINGTON MD 11/17/20 1209: Discharge Summary Discharge Physical Examination Allergies: Coded Allergies: No Known Drug Allergies (Unverified , 09/24/19) Supervisory-Addendum Brief Verification & Attestation Participated in pt care: history, MDM, physical Personally performed: exam, history Care discussed with: Medical Student Procedures: n/a I personally saw patient and repeated the history and exam and agree with documentation by BE Leong. MILAGROS LEONG,MED STUDENT Nov 17, 2020 11:19 DOM PENNINGTON MD Nov 17, 2020 12:09
[2020-11-17 12:00] VITALS: BP 167/77
[2020-11-18] MEDS ORDERED: FAMOTIDINE 20 MG (PEPCID) TABLET PO SCH (09:00)
== END 2020-11-17 14:41 ==
LOC: EDUNIT# 16:30 → ER FS 16:31 → 4TH 21:53
PROVIDERS: ADMIT Internal Medicine; ATTEND Family Medicine
DX: K56.41 Fecal impaction (principal); R19.7 Diarrhea, unspecified; J44.9 Chronic obstructive pulmonary disease, unspecified; I25.10 Atherosclerotic heart disease of native coronary artery without angina pectoris; I10 Essential (primary) hypertension; I25.2 Old myocardial infarction; K21.9 Gastro-esophageal reflux disease without esophagitis; E03.9 Hypothyroidism, unspecified; E78.00 Pure hypercholesterolemia, unspecified; E11.9 Type 2 diabetes mellitus without complications; E86.0 Dehydration; E87.0 Hyperosmolality and hypernatremia; G47.9 Sleep disorder, unspecified; G89.29 Other chronic pain; M54.9 Dorsalgia, unspecified; M19.90 Unspecified osteoarthritis, unspecified site; D72.829 Elevated white blood cell count, unspecified; N17.9 Acute kidney failure, unspecified; F03.90 Unspecified dementia, unspecified severity, without behavioral disturbance, psychotic disturbance, mood disturbance, and anxiety; F41.9 Anxiety disorder, unspecified; F32.9 Major depressive disorder, single episode, unspecified; Z87.891 Personal history of nicotine dependence; Z95.1 Presence of aortocoronary bypass graft; Z79.82 Long term (current) use of aspirin; Z79.890 Hormone replacement therapy
CPT/HCPCS: 36415; 51702; 74022; 74177; 80048; 80053 ×3; 81000; 82800; 82962; 83605 ×2; 83690; 84145; 84484; 85007; 85025 ×2; 85027 ×2; 85379; 87040; 87088; 87449; 93005; 99284; G0378

== ENCOUNTER 2020-12-08 02:29 | Emergency (ER) | payer OTHER ==
[~2020-12-08 02:29] MED LIST changes: +ACET-2267 PO; +ALBUTEROL SULFATE IH; +ASPI-808 PO; +BISA10SU8 PR; +BISA5TAB8 PO; +BTH10T PO; +CARV3.122 PO; +CETI10TA17 PO; +DICL100G31 TOP; +DOCU-143 PO; +FAMO-119 PO; +FINA5TAB6 PO; +FLUT1DIS26 IH; +FURO20TA4 PO; +GUAI600T43 PO; +HALO10TA PO; +HALO5TAB PO; +IBUP-16 PO; +IBUP-1779 PO; +LEVO100T7 PO; +LOPE-134 PO; +MAGN400O7 PO; +MELA3TAB39 PO; +MELA3TAB52 PO; +METH1ADH TP; +MIRT15TA6 PO; +RT-ALBUINH IH; +SENN-273 PO; +SERT-413 PO; +SIMV40TA25 PO; +TMSL.4C PO; +ZIPR60CA18 PO
[2020-12-08] MEDS ORDERED: LIDOCAINE 1% INJ 20 ML 20 ML VIAL ONE (02:33)
[2020-12-08] MEDS ORDERED: LIDOCAINE 1% INJ 20 ML 20 ML VIAL INJ STA (02:40)
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
[2020-12-08] MEDS ORDERED: TETANUS,DIPTH,PERTUSS P/F (BOOSTRIX) 0.5 ML VIAL IM ONE (03:30)
[2020-12-08 03:55] VITALS: BP 141/48
--- NOTE | 2020-12-08 06:18 | Diagnostic Imaging Report ---
PROCEDURE: CT head and CT cervical spine without contrast. TECHNIQUE: Multiple contiguous axial images were obtained through the brain and cervical spine without the use of intravenous contrast. Sagittal and coronal reformations through the cervical spine were then performed. Auto Exposure Controls were utilized during the CT exam to meet ALARA standards for radiation dose reduction. INDICATION: Injury, head and neck pain. CT HEAD: There is no intracranial mass, shift of the midline or hemorrhage to suggest an acute abnormality. The ventricles are prominent but stable in size when compared to the prior exam of 11/22/2019. The cortical atrophy and periventricular encephalomalacia seen previously are again evident and no different. There is soft tissue edema over the right frontal bone. There is no sign of a skull fracture in this area. No other bony abnormality is identified on the bone windows. The orbits are symmetrical and within normal limits. The sinuses are generally clear. IMPRESSION: 1. There is no evidence for an acute intracranial abnormality. 2. There is soft tissue edema over the right frontal bone, but there is no evidence for a skull fracture. 3. If clinical concern regarding an underlying abnormality persists, then MRI would be recommended for further study. CT cervical spine: The reconstructed parasagittal images show degenerative disc and bony disease at C5-C6 and C6-C7. There is also slight anterior translation of C4 with respect to C5. There is narrowing of the neural foramen at the C5-C6 level bilaterally but there is no high-grade central stenosis identified. There is no fracture or acute bony abnormality noted. There is no evidence for retropharyngeal edema. There is dense calcification of the common internal carotid arteries on the left. There may be a hemodynamically significant stenosis in this area. A carotid Doppler exam would be recommended for further study. Also, there appear to be surgical clips about a small 1.4 cm soft tissue density in the right neck. Correlation with patient's surgical history would be recommended. The thyroid gland was not visualized in its entirety and partially obscured by streak artifact. The lung apices are clear. IMPRESSION: 1. There is no evidence for an acute bony abnormality of the cervical spine. 2. There is a question of a hemodynamically significant stenosis involving the left carotid system. Ultrasound would be recommended for further study. 3. There are apparent postsurgical changes involving the right neck. Correlation with patient's surgical history would be recommended. 4. I agree with the [facility] interpretation of this exam although the [facility] report did not mention the postsurgical changes involving the right neck. Dictated by: Dictated on workstation # [id number]
== END 2020-12-08 03:55 | disposition home or self-care (01) ==
LOC: EDUNIT# 02:29 → ER FS 02:32
DX: S01.111A Laceration without foreign body of right eyelid and periocular area, initial encounter (principal); S81.811A Laceration without foreign body, right lower leg, initial encounter; I10 Essential (primary) hypertension; I25.2 Old myocardial infarction; I25.10 Atherosclerotic heart disease of native coronary artery without angina pectoris; E11.9 Type 2 diabetes mellitus without complications; E03.9 Hypothyroidism, unspecified; F03.90 Unspecified dementia, unspecified severity, without behavioral disturbance, psychotic disturbance, mood disturbance, and anxiety; F41.9 Anxiety disorder, unspecified; F32.9 Major depressive disorder, single episode, unspecified; K21.9 Gastro-esophageal reflux disease without esophagitis; K59.09 Other constipation; J44.9 Chronic obstructive pulmonary disease, unspecified; Z23 Encounter for immunization; Z79.4 Long term (current) use of insulin; Z87.891 Personal history of nicotine dependence; Z79.82 Long term (current) use of aspirin; Z79.51 Long term (current) use of inhaled steroids; Z79.890 Hormone replacement therapy; Z95.1 Presence of aortocoronary bypass graft; W01.198A Fall on same level from slipping, tripping and stumbling with subsequent striking against other object, initial encounter; W25.XXXA Contact with sharp glass, initial encounter; Y92.129 Unspecified place in nursing home as the place of occurrence of the external cause
CPT/HCPCS: 70450; 72125; 90715